=== PATIENT | female | born 1945 | race Caucasian/White ===

== ENCOUNTER 2023-09-15 01:56 | Observation (INO) | payer MEDICARE, BC ==
[2023-09-15] MEDS ORDERED: NALOXONE 0.4 MG/ML 1 ML VIAL IV PRN (02:10)
[2023-09-15] MEDS ORDERED: MORPHINE SULFATE 4 MG/ML SYRINGE IV PRN (02:10)
[2023-09-15] MEDS ORDERED: ACETAMINOPHEN TAB 325 MG TAB PO PRN (02:10)
--- NOTE | 2023-09-15 02:16 | ED ---
General Adult HPI - General Chief complaint: Arrhythmia/Palpitations Stated complaint: A-FIB Time Seen by Provider: 09/15/23 01:59 Source: patient, EMS, RN notes reviewed, old records reviewed Mode of arrival: EMS Limitations: no limitations - History of Present Illness Initial comments: 78-year-old female history of atrial fibrillation and coronary artery disease presents as transfer from outside hospital. Patient initially presented with chest pain and palpitations. She was noted to be in atrial fibrillation with RVR. Patient had received Cardizem and heparin infusion. She had an elevated troponin in the setting of chest discomfort and was transferred to this institution for cardiology consultation. Patient is in sinus rhythm and chest pain-free at the time my evaluation. Review of Systems ROS Statement: Those systems with pertinent positive or pertinent negative responses have been documented in the HPI. ROS Other: All systems not noted in ROS Statement are negative. Past Medical History Past Medical History: Atrial Fibrillation, COPD History of Any Multi-Drug Resistant Organisms: None Reported Past Surgical History: Appendectomy, Bowel Resection, Cholecystectomy, Heart C atheterization With Stent Past Psychological History: No Psychological Hx Reported Smoking Status: Former smoker Past Alcohol Use History: None Reported Past Drug Use History: None Reported General Exam Limitations: no limitations General appearance: alert, in no apparent distress Head exam: Present: atraumatic, normocephalic Eye exam: Present: normal appearance, PERRL ENT exam: Present: normal exam Neck exam: Present: normal inspection. Absent: tenderness, meningismus Respiratory exam: Present: normal lung sounds bilaterally, decreased breath sounds. Absent: respiratory distress, wheezes Cardiovascular Exam: Present: regular rate, normal rhythm GI/Abdominal exam: Present: soft. Absent: distended, tenderness, guarding Extremities exam: Present: pedal edema Neurological exam: Present: alert, oriented X3, CN II-XII intact. Absent: motor sensory deficit Psychiatric exam: Present: normal affect, normal mood Skin exam: Present: warm, dry, intact. Absent: cyanosis, diaphoretic Course Vital Signs 09/15/23 02:00 Temperature 98.3 F Pulse Rate 74 Respiratory 20 Rate Blood Pressure 138/68 O2 Sat by Pulse 97 Oximetry Medical Decision Making - Medical Decision Making Was pt. sent in by a medical professional or institution (, PA, MATCH MARKER, urgent care, hospital, or [facility]...) When possible be specific @ -Sent from [facility] Did you speak to anyone other than the patient for history (EMS, parent, family, police, friend...)? What history was obtained from this source @ -No Did you review nursing and triage notes (agree or disagree)? Why? @ -I reviewed and agree with nursing and triage notes Were old charts reviewed (outside hosp., previous admission, EMS record, old EKG, old radiological studies, urgent care reports/EKG's, [facility] records)? Report findings @ -No old charts were reviewed Differential Diagnosis (chest pain, altered mental status, abdominal pain women, abdominal pain men, vaginal bleeding, weakness, fever, dyspnea, syncope, headache, dizziness, GI bleed, back pain, seizure, CVA, palpatations, mental health, musculoskeletal)? @ Differential Palpitations Ventricular arrhythmias, atrial arrhythmias, myocardial infarction, anemia, thyrotoxicosis, electrolyte imbalance, hypokalemia, pulmonary embolism, pulmonary disease, drugs, alcohol, anxiety, stress.... This is not meant to be an all-inclusive list. EKG interpreted by me (3pts min.). @ Sinus rhythm with short MD interval, ventricular rate of 75, MD interval of 87, QRS duration 82, QTC [address] segment elevation, T-wave inversion in the lateral precordial leads. X-rays interpreted by me (1pt min.). @ -None done CT interpreted by me (1pt min.). @ -None done U/S interpreted by me (1pt. min.). @ -None done What testing was considered but not performed or refused? (CT, X-rays, U/S, labs)? Why? @ -None What meds were considered but not given or refused? Why? @ -None Did you discuss the management of the patient with other professionals (professionals i.e. , PA, MATCH MARKER, lab, RT, psych nurse, case management social worker, business objects report developer, teacher, dairy quality assurance officer, window caser)? Give summary @ -[Dr. Mayers Was smoking cessation discussed for >3mins.? @ -No Was critical care preformed (if so, how long)? @ -No Were there social determinants of health that impacted care today? How? (H omelessness, low income, unemployed, alcoholism, drug addiction, transportation, low edu. Level, literacy, decrease access to med. care, care home, rehab)? @ -No Was there de-escalation of care discussed even if they declined (Discuss DNR or withdrawal of care, Hospice)? DNR status @ -No What co-morbidities impacted this encounter? (DM, HTN, Smoking, COPD, CAD, Cancer, CVA, ARF, Chemo, Hep., AIDS, mental health diagnosis, sleep apnea, morbid obesity)? @ -Coronary artery disease, atrial fibrillation Was patient admitted / discharged? Hospital course, mention meds given and route, prescriptions, significant lab abnormalities, going to OR and other pertinent info. @ 78-year-old female presenting for him outside hospital with atrial fibrillation with RVR and elevated troponin. Patient is in sinus rhythm and chest pain-free at the time my evaluation. She will be monitored on telemetry, repeat laboratory testings and serial troponins will be ordered. She'll be admitted in observation status with cardiology on consultation. Undiagnosed new problem with uncertain prognosis? @ -No Drug Therapy requiring intensive monitoring for toxicity (Heparin, Nitro, Insulin, Cardizem)? @ -No Were any procedures done? @ -No Diagnosis/symptom? @ -[Atrial fibrillation with RVR, resolved, elevated troponin Acute, or Chronic, or Acute on Chronic? @ -[Acute Uncomplicated (without systemic symptoms) or Complicated (systemic symptoms)? @ -default Side effects of treatment? @ -No Exacerbation, Progression, or Severe Exacerbation? @ -No Poses a threat to life or bodily function? How? (Chest pain, [place], NH, pneumonia, PE, COPD, DKA, ARF, appy, cholecystitis, CVA, Diverticulitis, Homicidal, Suicidal, threat to staff... and all critical care pts) @ -[Yes, chest pain, arrhythmia Disposition Clinical Impression: Atrial fibrillation, Elevated troponin Disposition: ADMITTED IP TO THIS HOSP Condition: Stable Is patient prescribed a controlled substance at d/c from ED?: No Referrals: Nonstaff,Physician [Primary Care Provider] - 1-2 days Time of Disposition: 02:16
[2023-09-15 02:40] LABS: Basophils % (A) 0 %; Eosinophils # (A) 0.2 k/uL (0-0.7); Eosinophils % (A) 2 %; HCT 41.8 % (34.0-46.0); HGB 13.9 gm/dL (11.4-16.0); Lymphocytes # (A) 2.5 k/uL (1.0-4.8); Lymphocytes % (A) 32 %; MCH 32.5 pg (25.0-35.0); MCHC 33.2 g/dL (31.0-37.0); MCV 97.9 fL (80.0-100.0); Mean Platelet Volume 8.8; Monocytes # (A) 0.5 k/uL (0-1.0); Monocytes % (A) 6 %; Neutrophils # (A) 4.6 k/uL (1.3-7.7); Neutrophils % (A) 58 %; Platelet Count 167 k/uL (150-450); RBC 4.27 m/uL (3.80-5.40); RDW 13.3 % (11.5-15.5)
[2023-09-15 02:42] LABS: ALT 28 U/L (4-34); AST 24 U/L (14-36); African American GFR (CKD) >90 (>60 ml/min/1.73 sqM); Albumin 3.4 g/dL (3.5-5.0); Alkaline Phosphatase 65 U/L (38-126); Anion Gap 6 mmol/L; Blood Urea Nitrogen 24 mg/dL (7-17); Calcium 9.3 mg/dL (8.4-10.2); Carbon Dioxide 24 mmol/L (22-30); Chloride 108 mmol/L (98-107); Glucose 115 mg/dL (74-99); Magnesium 1.8 mg/dL (1.6-2.3); Non-African American GFR(CKD) 81 (>60 ml/min/1.73 sqM); Potassium 3.6 mmol/L (3.5-5.1); Sodium 138 mmol/L (137-145); Total Bilirubin 0.3 mg/dL (0.2-1.3); Total Protein 5.9 g/dL (6.3-8.2)
[2023-09-15 02:44] LABS: INR 0.9 (<1.2); Prothrombin Time 9.8 sec (10.0-12.5)
--- NOTE | 2023-09-15 03:44 | P.HPIM ---
History of Present Illness H&P Date: 09/15/23 Patient is a 78-year-old female with a PMH of paroxysmal A. fib, COPD with chronic hypoxic respiratory failure on nocturnal 2 L of the cannula oxygen at home, hypertension, CAD status post stenting, who was transferred from [facility] for chest pain. Patient reports she was in her usual state of health until around 9:45 PM earlier tonight when she suddenly developed epigastric chest discomfort, 7 out of 10 maximum intensity, radiating to the back, nonpleuritic, nonexertional, with no alleviating or exacerbating features. The pain lasted until she arrived at the transferring hospital and was given medications. She reports feeling at her baseline at the time of interview. Den ied experiencing associated shortness of breath, nausea, vomiting, diaphoresis, or dizziness. Denied fever, chills, cough, abdominal pain, diarrhea. Of note, the patient was recently admitted to [facility] for A. fib with RVR and was initiated on Eliquis as per the patient. The patient's workup from [facility] was reviewed with chest x- ray unremarkable. Laboratory evaluation revealed WBC count 8.12, and 114.8, platelets 191, sodium 140 potassium 3.8, chloride 105, CO2 28, BUN 23, creatinine 0.8. EKG revealed A. fib with RVR at 165 bpm. Troponin at our facility was 0.079. ED documentation reviewed and case discussed with ED provider. Review of systems: Pertinent positives and negatives as discussed in HPI, a complete review of systems was performed and all other systems are negative. Physical examination: Vital signs reviewed General: non toxic, no distress, appears at stated age, obese Derm: no unusual rashes/lesions, warm Head: atraumatic, normocephalic, symmetric Eyes: EOMI, no lid lag, anicteric sclera, pupils equal round reactive to light ENT: Nose and ears atraumatic Neck: No cervical lymphadenopathy, trachea midline, supple Mouth: no lip lesion, mucus membranes moist Cardiovascular: S1S2 reg, no murmur, positive dorsalis pedis pulse bilateral, no edema Lungs: CTA bilateral, no rhonchi, no rales, no accessory muscle use Abdominal: soft, nontender to palpation, no guarding Ext: muscle strength 5 out of 5 in all 4 extremities grossly, no gross muscle atrophy, no contractures, Neuro: CN II-XI grossly intact, no gross focal neuro deficits Psych: Alert, oriented, appropriate affect Assessment: NSTEMI Afib, RVR now resolved Chronic conditions: A. fib, COPD, CAD, hypertension Imaging: The patient's workup from [facility] was reviewed with chest x- ray unremarkable. EKG revealed A. fib with RVR at 165 bpm. Data Review: Laboratory evaluation revealed high sensitivity troponin 73, WBC count 8.12, and 114.8, platelets 191, sodium 140 potassium 3.8, chloride 105, CO2 28, BUN 23, creatinine 0.8. Plan: Patient currently on Eliquis. Reports dose is 5 mg po bid and doesn't recall when she last took it Trend troponin Cardiac monitoring Cardiology consult Continue with aspirin, statin Echocardiogram Resume home medications once reconciled DVT prophylaxis: Eliquis The patient is admitted with an anticipated less than 2 midnight stay for evaluation of chest pain CODE STATUS: Full Code Discussed with: Patient Anticipated discharge place: Home Past Medical History Past Medical History: Atrial Fibrillation, COPD History of Any Multi-Drug Resistant Organisms: None Reported Past Surgical History: Appendectomy, Bowel Resection, Cholecystectomy, Heart Catheterization With Stent Past Psychological History: No Psychological Hx Reported Smoking Status: Former smoker Past Alcohol Use History: None Reported Past Drug Use History: None Reported Medications and Allergies Allergies Allergy/AdvReac Type Severity Reaction Status Date / Time aclidinium Allergy Unknown Verified 09/15/23 02:16 [From [facility]] lisinopril Allergy Unknown Verified 09/15/23 02:16 morphine Allergy Unknown Verified 09/15/23 02:16 Penicillins Allergy Unknown Verified 09/15/23 02:16 Maxlvva-DVP-KaJ Reductase Allergy Unknown Verified 09/15/23 02:16 Inhibitor aspirin AdvReac Nausea & Verified 09/15/23 02:16 Vomiting Physical Exam Vitals: Vital Signs Temp Pulse Resp BP Pulse Ox 09/15/23 02:00 98.3 F 74 20 138/68 97 Intake and Output 09/14/23 09/14/23 09/15/23 14:59 22:59 06:59 Other: Weight 79.832 kg Results CBC & Chem 7: 09/15/23 02:07 09/15/23 02:07 Labs: Abnormal Lab Results - Last 24 Hours (Table) 10/09/15/23 09/15/23 Range/Units 02:07 02:07 02:07 PT 9.8 L (10.0-12.5) sec Chloride 108 H (98-107) mmol/L BUN 24 H (7-17) mg/dL Glucose 115 H (74-99) mg/dL Troponin I 0.079 H* (0.000-0.034) ng/mL Total Protein 5.9 L (6.3-8.2) g/dL Albumin 3.4 L (3.5-5.0) g/dL
[2023-09-15] MEDS: ASPIRIN 81 MG PO SCH (08:28)
[2023-09-15] MEDS ORDERED: ALPRAZolam 0.25 MG TAB PO PRN ×2 (08:50→10:11)
[2023-09-15] MEDS ORDERED: DILTIAZEM CD 120 MG CAP.ER.24H PO SCH (09:00)
[2023-09-15] MEDS: buPROPion 75 MG TAB PO SCH (09:25)
[2023-09-15] MEDS: ISOSORBIDE MONONITRATE ER 30 MG TAB.ER.24H PO SCH (09:25)
[2023-09-15] MEDS ORDERED: NITROGLYCERIN SL TABS 0.4 MG TAB SUBLINGUAL PRN (10:11)
[2023-09-15] MEDS ORDERED: ATORVASTATIN 80 MG TAB PO STA (10:11)
[2023-09-15] MEDS ORDERED: ALPRAZolam 0.5 MG TAB PO PRN (10:11)
[2023-09-15] MEDS ORDERED: ASPIRIN 325 MG TAB PO STA (10:11)
[2023-09-15] MEDS ORDERED: DILTIAZEM CD 120 MG CAP.ER.24H PO STA (10:13)
[2023-09-15] MEDS: ALBUTEROL NEBULIZED 2.5 MG/3 ML INHALATION PRN ×2 (11:26→21:06)
[2023-09-15] MEDS ORDERED: SODIUM CHLORIDE 0.9% 1,000 ML IV SCH (11:30)
--- NOTE | 2023-09-15 12:11 | P.CRDCN ---
History of Present Illness Consult date: 09/15/23 Consult reason: atrial fibrillation (With RVR, elevated troponin) History of present illness: History of present illness: This is a 78 year old female patient follows with Dr. Garcia cardiology at [facility] with past medical history of coronary artery disease with stent of the circumflex in 2009, atrial fibrillation, COPD, bowel cancer and bladder cancer, AAA, home O2 dependence at 2 L nasal cannula as needed, remote history of tobacco use and dependence. Patient gives history that she was admitted to [facility] on Monday and found to have atrial fibrillation was discharged home on Monday on . She had echocardiogram done at that time but no stress test. Patient states that last night she had pain or pressur e or burning type sensation until she arrived to the hospital. She states the pain comes and goes and she breaks into a sweat with shortness of breath. No lightheadedness and no palpitations. Last night she noticed that she also had lower extremity edema which is new. She states yesterday during the day she was feeling fine and had a follow-up appointment from her recent hospitalization. She does complain of chronic shortness of breath with exertion. She denies any blood in her stool. No history of CVA. Patient denies having any recent catheterization or stress test. Patient is seen today in the emergency center waiting for a bed on the cardiac stepdown unit. Patient is currently in atrial fibrillation rate controlled. EKG sinus rhythm with no acute ST changes. CBC within normal limits. INR 0.9. Sodium 138, potassium 3.7, chloride 108, CO2 24, BUN 24 creatinine 0.73. Blood sugar 115. Magnesium 1.8. Troponin 0.079, 0.097, 0.101. TSH 4.13. Albumin 3.4. Home cardiac medications: Aspirin 81 mg daily, Cardizem 120 mg daily, Jardiance 10 mg daily, Imdur 30 mg daily, Nitrostat as needed, eliquis not on her medication list Review Of Systems: At the time of my evaluation: Constitutional: No fever, no chills. No weakness, fatigue or lethargy. EENT: No headache. No dizziness. Lungs: + shortness of breath, cough, no sputum production. No wheezing. Reports dyspnea on exertion Cardiovascular: No chest pain, no lower extremity edema. No palpitations. No paroxysmal nocturnal dyspnea. No orthopnea. No lightheadedness or dizziness. No syncopal episodes. Abdominal: No abdominal pain. No nausea, vomiting. No diarrhea. No constipation. No bloody or tarry stools. Genitourinary: No dysuria.. No urinary retention. Musculoskeletal: No myalgias. No muscle weakness, no frequent falls. No back pain. No neck pain. Integumentary: No wounds. No rash. No unusual bruising. Neurologic: No aphasia. No facial droop. No change in mentation. No head injury. No headache. Physical examination: Gen: This is a 78-year-old female. She is resting on the ear structure and appears to be in no acute distress VS: reviewed HEENT: Head is atraumatic, normocephalic. Pupils equal, round. Sclerae is anicteric. NECK: Supple. No JVD. . LUNGS: Clear to auscultation. No wheezes or rhonchi. No intercostal retractions. HEART: Irregular rate and rhythm. ABDOMEN: Soft No tenderness. EXTREMITIES: No pedal edema. No calf tenderness. NEUROLOGICAL: Patient is awake, alert and oriented x3. Assessment: Non-ST elevated myocardial infarction Dyspnea on exertion concerning for coronary artery disease Paroxysmal atrial fibrillation, rate controlled History of coronary artery disease with previous stent of circumflex in 2009 COPD History of bowel cancer and bladder cancer History of AAA Chronic hypoxic respiratory failure on home O2 as needed Plan: Continue heparin drip Increase Cardizem oral to 240 mg daily Make patient nothing by mouth Schedule patient for cardiac catheterization today with Dr. Chacon Obtain 2-D echocardiogram and Doppler study to assess cardiac structure and function Further recommendations to follow based upon clinical course Thank you kindly for this consultation. Nurse practitioner note has been reviewed, I agree with documented findings and plan of care. Patient was seen and examined. Past Medical History Past Medical History: Atrial Fibrillation, COPD History of Any Multi-Drug Resistant Organisms: None Reported Past Surgical History: Appendectomy, Bowel Resection, Cholecystectomy, Heart Catheterization With Stent Past Psychological History: No Psychological Hx Reported Smoking Status: Former smoker Past Alcohol Use History: None Reported Past Drug Use History: None Reported Medications and Allergies Home Medications Medication Instructions Recorded Confirmed Type ALPRAZolam [Xanax] 0.125 mg PO BID PRN 09/15/23 09/15/23 History Albuterol Nebulized [Ventolin 2.5 mg INHALATION RT-Q6H PRN 09/15/23 09/15/23 History Nebulized] Albuterol Sulfate [Ventolin HFA] 1 - 2 puff INHALATION RT-Q6H PRN 09/15/23 09/15/23 History Alendronate Sodium [Fosamax] 70 mg PO Q7DAYS 09/15/23 09/15/23 History Aspirin EC [Ecotrin Low Dose] 81 mg PO DAILY 09/15/23 09/15/23 History Cholecalciferol [Vitamin D3 (25 50 mcg PO DAILY 09/15/23 09/15/23 History Mcg = 1000 Iu)] Empagliflozin [Jardiance] 10 mg PO DAILY 09/15/23 09/15/23 History Fluticasone Nasal [place] [Flonase 1 spray EA NOSTRIL BID PRN 09/15/23 09/15/23 History Nasal [place]] Isosorbide Mononitrate ER [Imdur] 30 mg PO DAILY 09/15/23 09/15/23 History L.acidoph,Paracasei, B.lactis 1 cap PO DAILY 09/15/23 09/15/23 History [Probiotic] Montelukast [Singulair] 10 mg PO HS 09/15/23 09/15/23 History Multivitamin/Iron/Folic Acid 1 tab PO DAILY 09/15/23 09/15/23 History [Centrum Complete Multivit Tab] Nitroglycerin Sl Tabs [Nitrostat] 0.4 mg SUBLINGUAL Q5M PRN 09/15/23 09/15/23 H istory Tiotropium Br/Olodaterol HCl 2 spray INHALATION RT-DAILY 09/15/23 09/15/23 History [Stiolto Respimat Inhal [place]] buPROPion [Wellbutrin] 75 mg PO DAILY 09/15/23 09/15/23 History dilTIAZem HCL [dilTIAZem HCL 24Hr 120 mg PO DAILY 09/15/23 09/15/23 History ER (Xr)] diphenhydrAMINE HCL [Benadryl] 25 mg PO BID PRN 09/15/23 09/15/23 History Allergies Allergy/AdvReac Type Severity Reaction Status Date / Time acetaminophen [From Tylenol] Allergy Unknown Verified 09/15/23 06:55 aclidinium Allergy Unknown Verified 09/15/23 06:55 [From [facility]] lisinopril Allergy Unknown Verified 09/15/23 06:55 morphine Allergy Unknown Verified 09/15/23 06:55 Penicillins Allergy Unknown Verified 09/15/23 06:55 Buajkxk-MLB-FkB Reductase Allergy Unknown Verified 09/15/23 06:55 Inhibitor aspirin AdvReac Nausea & Verified 09/15/23 06:55 Vomiting Physical Exam Vitals: Vital Signs Temp Pulse Resp BP Pulse Ox 09/15/23 08:20 97 09/15/23 08:00 73 18 130/76 96 09/15/23 02:00 98.3 F 74 20 138/68 97 Intake and Output 09/14/23 09/15/23 09/15/23 22:59 06:59 14:59 Other: Weight 79.832 kg Results 09/15/23 02:07 09/15/23 02:07 Cardiac Enzymes 09/15/23 09/15/23 09/15/23 Range/Units 02:07 02:07 04:03 AST 24 (14-36) U/L Troponin I 0.079 H* 0.097 H* (0.000-0.034) ng/mL 09/15/23 Range/Units 07:32 AST (14-36) U/L Troponin I 0.101 H* (0.000-0.034) ng/mL Coagulation 09/15/23 Range/Units 02:07 PT 9.8 L (10.0-12.5) sec APTT 28.0 (22.0-30.0) sec CBC 09/15/23 Range/Units 02:07 WBC 8.0 (3.8-10.6) k/uL RBC 4.27 (3.80-5.40) m/uL Hgb 13.9 (11.4-16.0) gm/dL Hct 41.8 (34.0-46.0) % Plt Count 167 (150-450) k/uL Comprehensive Metabolic Panel 09/15/23 Range/Units 02:07 Sodium 138 (137-145) mmol/L Potassium 3.6 (3.5-5.1) mmol/L Chloride 108 H (98-107) mmol/L Carbon Dioxide 24 (22-30) mmol/L BUN 24 H (7-17) mg/dL Creatinine 0.73 (0.52-1.04) mg/dL Glucose 115 H (74-99) mg/dL Calcium 9.3 (8.4-10.2) mg/dL AST 24 (14-36) U/L ALT 28 (4-34) U/L Alkaline Phosphatase 65 (38-126) U/L Total Protein 5.9 L (6.3-8.2) g/dL Albumin 3.4 L (3.5-5.0) g/dL Current Medications Generic Name Dose Route Start Last Admin Trade Name Freq PRN Reason Stop Dose Admin Acetaminophen 650 mg 09/15/23 02:10 Acetaminophen Tab 325 Mg Tab PO Q6HR PRN Mild Pain or Fever > 100.5 Albuterol Sulfate 2.5 mg 09/15/23 08:50 Albuterol Nebulized 2.5 Mg/3 Ml INHALATION RT-Q6H PRN Shortness Of Breath Alprazolam 0.125 mg 09/15/23 08:50 Alprazolam 0.25 Mg Tab PO BID PRN Anxiety Aspirin 81 mg 09/15/23 09:00 09/15/23 08:28 Aspirin 81 Mg PO 81 mg DAILY CL Administration Bupropion HCl 75 mg 09/15/23 09:00 Bupropion 75 Mg Tab PO DAILY CL Diltiazem HCl 120 mg 09/15/23 09:00 Diltiazem Cd 120 Mg Cap.Er.24h PO DAILY CL Isosorbide Mononitrate 30 mg 09/15/23 09:00 Isosorbide Mononitrate Er 30 Mg Tab.Er.24h PO DAILY [facility] Montelukast Sodium 10 mg 09/15/23 21:00 Montelukast 10 Mg Tab PO HS [facility] Morphine Sulfate 4 mg 09/15/23 02:10 Morphine Sulfate 4 Mg/Ml Syringe IV Q4HR PRN Severe Pain (Scale 7 to 10) Naloxone HCl 0.2 mg 09/15/23 02:10 Naloxone 0.4 Mg/Ml 1 Ml Vial IV Q2M PRN Opioid Reversal Intake and Output 09/14/23 09/15/23 09/15/23 22:59 06:59 14:59 Other: Weight 79.832 kg 09/15/23 02:07 09/15/23 02:07
[2023-09-15] MEDS ORDERED: IV FLUID CONTINUATION 1,000 ML IV ONE (13:26)
[2023-09-15] MEDS ORDERED: VERAPAMIL 2.5 MG/ML 2 ML AMP ONE (13:40)
[2023-09-15] MEDS ORDERED: fentaNYL (PF) 50 MCG/ML 2 ML AMP ONE (13:44)
[2023-09-15] MEDS ORDERED: fentaNYL (PF) 50 MCG/ML 2 ML AMP IVP ONE (13:50)
[2023-09-15] MEDS ORDERED: MIDAZOLAM 2 MG/2 ML VIAL IVP ONE (13:50)
[2023-09-15] MEDS ORDERED: LIDOCAINE 2% (PF) 20 MG/ML 5 ML VIAL SQ ONE (13:51)
[2023-09-15] MEDS ORDERED: VERAPAMIL SYRINGE (5 MG/10 ML) INTRAARTER ONE (13:53)
[2023-09-15] MEDS ORDERED: HEPARIN SODIUM 1,000 UN/ML (10ML VL) ONE (13:56)
[2023-09-15] MEDS: HEPARIN SODIUM 1,000 UN/ML (10ML VL) IV ONE ×2 (13:58→14:30)
[2023-09-15] MEDS ORDERED: CLOPIDOGREL 75 MG TAB ONE (14:08)
[2023-09-15] MEDS ORDERED: CLOPIDOGREL 75 MG TAB PO ONE (14:11)
[2023-09-15] MEDS ORDERED: IOPAMIDOL-370 100ML BTL INJ ONE ×2 (14:20→14:39)
[2023-09-15] MEDS: NITROGLYCERIN 1000MCG/10ML SYRINGE INTRACORON ONE ×3 (14:21→14:30)
[2023-09-15] MEDS ORDERED: FLUTICASONE 50MCG/SPRAY NASAL 16GM EA NOSTRIL PRN (14:45)
[2023-09-15] MEDS ORDERED: ZOLPIDEM 5 MG TAB PO PRN (14:47)
[2023-09-15] MEDS ORDERED: MAG HYDROX/AL HYDROX/SIMETH 30 ML CUP PO PRN (14:47)
[2023-09-15] MEDS ORDERED: RX INFO: IV CONTRAST WAS GIVEN 1 EACH MISC MISCELLANE PRN (14:47)
[2023-09-15] MEDS ORDERED: ATROPINE SULFATE 0.1 MG/ML 10ML SYRINGE IV PRN (14:47)
--- NOTE | 2023-09-15 16:30 | P.PRCINT ---
Percutaneous Coronary Int. - Percutaneous Coronary Intervention Percutaneous Coronary Intervention: PROCEDURES PERFORMED: Left heart catheterization, bilateral coronary angiography, ultrasound guided arterial access, PCI distal circumflex with a 2.5 x 23mm and 2.25 x 8mm Xience ELOY INDICATION: Non-STEMI CONSENT:I have discussed the risks, benefits and alternative therapies for the above-mentioned procedure and for both sedation/analgesia as well as necessary blood product administration, if indicated, as they pertain to this patient. The patient has indicated understanding and acceptance of the risks and procedures discussed. PROCEDURE: After the risks, benefits and alternatives of the above mentioned procedure explained in detail with the patient, informed consent was obtained. Patient was taken to the catheterization lab and prepped and draped in usual fashion. Ultrasound guidance was used to assess for arterial access. 1% lidocaine was used to anesthetize the right ulnar artery. A 6-Ivorian sheath was placed in the right ulnarartery using modified Seldinger technique and ultrasound guidance. Left coronary angiography was performed with a 5-Ivorian JL 3.5 catheter and right coronary angiography was performed with a 5-Ivorian AR2 catheter in various views. A 5-Ivorian AR2 catheter was inserted into the left ventricle and pressure measurements were obtained. The decision was made to perform PCI of the circumflex. A 6-Ivorian CLS 3.5 guide was used to engage the left main. A 0.014 BMW wire was advanced in the distal circumflex. Heparin was given. Predilation was performed with a 2.0 x 12 mm and then 2.25 x 15 mm noncompliant balloon. Next a 2.5 x 23 mm Xience ELOY was placed in the distal circumflex. An additional 2.25 by 8mm Xience ELOY was placed at the distal edge of the stent given still some area of stenosis. The wire was pulled and final angiograms were performed. Preintervention there was 90% stenosis and BIRD-3 flow and postintervention there was less than 10% stenosis and BIRD-3 flow. The right ulnar sheath was removed and a TR band was placed with hemostasis ac hieved. The patient tolerated the procedure well. Patient was transported back to the post catheterization holding area in stable condition. Conscious Sedation: Patient was monitored under the direct supervision of myself for conscious sedation using Versed and fentanyl for a total duration of 50 minutes HEMODYNAMICS: Ao: 144/73 LV: 139/7, LVEDP 23 SELECTIVE CORONARY ARTERIOGRAPHY: LEFT MAIN: The left main is a large caliber vessel which bifurcates into the LAD and circumflex. There is no significant stenosis. LEFT ANTERIOR DESCENDING CORONARY ARTERY: LAD is a large caliber vessel which wraps around to the apex. There is diffuse mild 30-40% mid and distal LAD stenosis. LEFT CIRCUMFLEX CORONARY ARTERY: Left circumflex is a moderate caliber vessel with a patent proximal circumflex stent and after an OM2 branch there is a 90% distal circumflex stenosis. RIGHT CORONARY ARTERY: The right coronary artery is a small to moderate caliber vessel which gives off a PDA and PLV branch and is the dominant vessel. There is diffuse 30-50% RCA stenosis. FINAL IMPRESSION: 1. CAD as described above including 30-50% RCA stenosis, 30-40% middle and distal LAD stenosis and 90% distal circumflex stenosis 2. Elevated left sided filling pressures 3. S/p PCI distal circumflex with a 2.5 x 23mm and 2.25 x 8mm Xience ELOY PLAN: 1. Aggressive risk factor modification per most recent ACC/AHA guidelines. 2. Continue Plavix and Eliquis for 12 months.
[2023-09-15] MEDS ORDERED: MONTELUKAST 10 MG TAB PO SCH (21:00)
[2023-09-16 02:35] LABS: Glucose,Whole Blood 98 mg/dL (70-110)
[2023-09-16 06:14] LABS: Glucose,Whole Blood 88 mg/dL (70-110)
[2023-09-16] MEDS ORDERED: HEPARIN SODIUM,PORCINE (1 ML) 2,500 UNIT in SODIUM CHLORIDE 0.9% 250 ML IRRIGATION PRN (07:00)
[2023-09-16] MEDS ORDERED: HEPARIN SODIUM,PORCINE 10,000 UNIT in SODIUM CHLORIDE 0.9% 1,000 ML IRRIGATION PRN (07:00)
[2023-09-16] MEDS: buPROPion 75 MG TAB PO SCH (08:31)
[2023-09-16] MEDS: ISOSORBIDE MONONITRATE ER 30 MG TAB.ER.24H PO SCH (08:31)
[2023-09-16] MEDS: ASPIRIN 81 MG PO SCH (08:31)
[2023-09-16] MEDS ORDERED: CLOPIDOGREL 75 MG TAB PO SCH (09:00)
[2023-09-16] MEDS ORDERED: LACTOBACILLUS ACIDOPHILUS/PECT 1 EACH CAPSULE PO SCH (09:00)
[2023-09-16] MEDS ORDERED: CHOLECALCIFEROL 25 MCG (1000 IU) TABLET PO SCH (09:00)
[2023-09-16] MEDS ORDERED: APIXABAN 2.5 MG TABLET PO SCH (09:00)
[2023-09-16] MEDS ORDERED: DAPAGLIFLOZIN PROPANEDIOL 5 MG TABLET PO SCH (09:00)
[2023-09-16] MEDS ORDERED: DILTIAZEM CD 240 MG CAP.ER.24H PO SCH (09:00)
[2023-09-16] MEDS ORDERED: NON FORMULARY DRUG (Aspirin Ec 81 MG Tablet) PO SCH (09:00)
[2023-09-16 09:26] LABS: Basophils % (A) 0 %; Eosinophils # (A) 0.3 k/uL (0-0.7); Eosinophils % (A) 4 %; HCT 44.2 % (34.0-46.0); HGB 14.2 gm/dL (11.4-16.0); Lymphocytes # (A) 1.5 k/uL (1.0-4.8); Lymphocytes % (A) 20 %; MCH 31.8 pg (25.0-35.0); MCHC 32.2 g/dL (31.0-37.0); Mean Platelet Volume 8.2; Monocytes # (A) 0.4 k/uL (0-1.0); Monocytes % (A) 6 %; Neutrophils # (A) 5.2 k/uL (1.3-7.7); Neutrophils % (A) 69 %; Platelet Count 167 k/uL (150-450); RBC 4.46 m/uL (3.80-5.40); RDW 13.4 % (11.5-15.5); WBC 7.5 k/uL (3.8-10.6)
[2023-09-16 09:51] LABS: African American GFR (CKD) >90 (>60 ml/min/1.73 sqM); Anion Gap 10 mmol/L; Blood Urea Nitrogen 15 mg/dL (7-17); Calcium 8.9 mg/dL (8.4-10.2); Carbon Dioxide 23 mmol/L (22-30); Chloride 107 mmol/L (98-107); Glucose 89 mg/dL (74-99); Non-African American GFR(CKD) 85 (>60 ml/min/1.73 sqM); Sodium 140 mmol/L (137-145)
--- NOTE | 2023-09-16 10:57 | P.PN ---
Subjective Progress Note Date: 09/16/23 History of present illness: This is a 78 year old female patient follows with Dr. Garcia cardiology at [facility] with past medical history of coronary artery disease with stent of the circumflex in 2009, atrial fibrillation, COPD, bowel cancer and bladder cancer, AAA, home O2 dependence at 2 L nasal cannula as needed, remote history of tobacco use and dependence. Patient gives history that she was admitted to [facility] on Monday and found to have atrial fibrillation was discharged home on Monday on . She had echocardiogram done at that time but no stress test. Patient states that last night she had pain or pressure or burning type sensation until she arrived to the hospital. She states the pain comes and goes and she breaks into a sweat with shortness of breath. No lightheadedness and no palpitations. Last night she noticed that she also had lower extremity edema which is new. She states yesterday during the day she was feeling fine and had a follow-up appointment from her recent hospitalization. She does complain of chronic shortness of breath with exertion. She denies any blood in her stool. No history of CVA. Patient denies having any recent cathet erization or stress test. Patient is seen today in the emergency center waiting for a bed on the cardiac stepdown unit. Patient is currently in atrial fibrillation rate controlled. EKG sinus rhythm with no acute ST changes. CBC within normal limits. INR 0.9. Sodium 138, potassium 3.7, chloride 108, CO2 24, BUN 24 creatinine 0.73. Blood sugar 115. Magnesium 1.8. Troponin 0.079, 0.097, 0.101. TSH 4.13. Albumin 3.4. Home cardiac medications: Aspirin 81 mg daily, Cardizem 120 mg daily, Jardiance 10 mg daily, Imdur 30 mg daily, Nitrostat as needed, eliquis not on her medication list 09/16 Yessterday, patient underwent LHC with Dr. Chacon which revealed CAD including 30-50% RCA stenosis, 30-40% middle and distal LAD stenosis, 90% distal circumflex stenosis. Elevated left-sided filling pressures. Patient underwent PCI of the distal circumflex with plan to continue Plavix and eliquis for 12 months. Reviewed results of cardiac cath with the patient and all questions were answered. Patient denies having any chest pain but still has some diiculty breathing which is about the same as she has at home. She is concerned that she needs an oxygen tank to go home with and nursing has been updated regarding this. Physical examination: Gen: This is a 78-year-old female. She is resting on the edge of her bed and appears to be in no acute distress VS: reviewed HEENT: Head is atraumatic, normocephalic. Pupils equal, round. Sclerae is anicteric. NECK: Supple. No JVD. . LUNGS: Clear to auscultation. No wheezes or rhonchi. No intercostal retractions. HEART: Irregular rate and rhythm. ABDOMEN: Soft No tenderness. EXTREMITIES: No pedal edema. No calf tenderness. NEUROLOGICAL: Patient is awake, alert and oriented x3. Assessment: Non-ST elevated myocardial infarction Dyspnea on exertion concerning for coronary artery disease Paroxysmal atrial fibrillation, rate controlled History of coronary artery disease with previous stent of circumflex in 2009 COPD History of bowel cancer and bladder cancer History of AAA Chronic hypoxic respiratory failure on home O2 as needed Plan: Continue Cardizem oral 240 mg daily Continue other cardiac medications Add Lasix 40 mg oral daily Patient is cleared for discharge from cardiology and may follow-up with either Dr. Chacon or with systems specialist in her area. Nurse practitioner note has been reviewed, I agree with documented findings and plan of care. Patient was seen and examined. Objective - Vital Signs Vital signs: Vital Signs Temp 98.0 F 09/16/23 08:20 Pulse 80 09/16/23 08:20 Resp 18 09/16/23 08:20 BP 131/81 09/16/23 08:20 Pulse Ox 93 L 09/16/23 08:20 FiO2 Intake & Output 09/15/23 09/16/23 09/16/23 18:59 06:59 18:59 Intake Total 330 Balance 330 Weight 79.832 kg Intake: IV 150 Oral 180 Other: Voiding Method Toilet # Voids 1 2 - Labs CBC & Chem 7: 09/16/23 08:23 09/16/23 08:23
[2023-09-16 10:59] VITALS: TEMP 98
[2023-09-16] MEDS ORDERED: FUROSEMIDE 40 MG TAB PO SCH (11:00)
--- NOTE | 2023-09-16 11:42 | P.DS ---
Providers Date of admission: 09/15/23 02:10 Expected date of discharge: 09/16/23 Attending physician: Ramona Mayers MD Consults: 09/15/23 02:10 Consult Physician Routine Consulting Provider: Lashay Capellan Consult Reason/Comments: Elevated troponin, a chest tube placed with RVR Do you want consulting provider notified?: Yes 09/15/23 14:47 Consult Physician Routine Consulting Provider: [facility] Consult Reason/Comments: Post Interventional Patient Do you want consulting provider notified?: Already Contacted Primary care physician: Geovani Rolle MD Hospital Course: Patient is a 78-year-old female with a PMH of paroxysmal A. fib, COPD with chronic hypoxic respiratory failure on nocturnal 2 L of the cannula oxygen at home, hypertension, CAD status post stenting, who was transferred from [facility] for chest pain. Patient reports she was in her usual state of health until around 9:45 PM earlier tonight when she suddenly developed epigastr ic chest discomfort, 7 out of 10 maximum intensity, radiating to the back, nonpleuritic, nonexertional, with no alleviating or exacerbating features. The pain lasted until she arrived at the transferring hospital and was given medications. She reports feeling at her baseline at the time of interview. Denied experiencing associated shortness of breath, nausea, vomiting, diaphoresis, or dizziness. Denied fever, chills, cough, abdominal pain, diarrhea. Of note, the patient was recently admitted to [facility] for A. fib with RVR and was initiated on Eliquis as per the patient. The patient's workup from [facility] was reviewed with chest x- ray unremarkable. Laboratory evaluation revealed WBC count 8.12, and 114.8, platelets 191, sodium 140 potassium 3.8, chloride 105, CO2 28, BUN 23, creatinine 0.8. EKG revealed A. fib with RVR at 165 bpm. Troponin at our facility was 0.079. Troponin uptrended to 0.097 and 0.101. She was started on a heparin drip and cardiology was consulted. Cardiology recommended cardiac cath. Cath showed 30- 50% RCA, 30-40% middle and distal LAD and 90% left circumflex. She underwent PCI to distal circumflex. 09/16 Patient was seen and examined. She reports no chest pain. Feeling well. Cardiology has cleared the patient for discharge. Scripts sent to pharmacy for Eliquis, new Cardizem dose, Lasix and Plavix. Advised to follow up with Cardiology within 1 week and PCP within 1-2 days of discharge. Pertinent studies include EKG. Pertinent procedures include cardiac cath. Vital signs reviewed General: non toxic, no distress, appears at stated age, obese Head: atraumatic, normocephalic, symmetric Eyes: EOMI, no lid lag, anicteric sclera ENT: Nose and ears atraumatic Neck: No cervical lymphadenopathy, trachea midline, supple Cardiovascular: S1S2 reg, no murmur, no edema Lungs: CTA bilateral, no rhonchi, no rales, no accessory muscle use Ext: muscle strength 5 out of 5 in all 4 extremities grossly, no gross muscle atrophy, no contractures, Neuro: no gross focal neuro deficits Psych: Alert, oriented, appropriate affect Discharge Diagnosis: NSTEMI Afib, RVR now resolved Chronic conditions: A. fib, COPD, CAD, hypertension This complex discharge took 35 minutes to complete. Patient Condition at Discharge: Stable Plan - Discharge Summary New Discharge Prescriptions: New Diltiazem Cd [Cardizem CD] 240 mg PO DAILY #30 cap Apixaban [Eliquis] 2.5 mg PO BID #60 tab Furosemide [Lasix] 40 mg PO DAILY #30 tab Clopidogrel [Plavix] 75 mg PO DAILY #30 tab Continue Nitroglycerin Sl Tabs [Nitrostat] 0.4 mg SUBLINGUAL Q5M PRN PRN Reason: Chest Pain Isosorbide Mononitrate ER [Imdur] 30 mg PO DAILY buPROPion [Wellbutrin] 75 mg PO DAILY Cholecalciferol [Vitamin D3 (25 Mcg = 1000 Iu)] 50 mcg PO DAILY ALPRAZolam [Xanax] 0.125 mg PO BID PRN PRN Reason: Anxiety Multivitamin/Iron/Folic Acid [Centrum Complete Multivit Tab] 1 tab PO DAILY Montelukast [Singulair] 10 mg PO HS L.acidoph,Paracasei, B.lactis [Probiotic] 1 cap PO DAILY diphenhydrAMINE HCL [Benadryl] 25 mg PO BID PRN PRN Reason: Allergy Symptoms Fluticasone Nasal [place] [Flonase Nasal [place]] 1 spray EA NOSTRIL BID PRN PRN Reason: Allergy Symptoms Aspirin EC [Ecotrin Low Dose] 81 mg PO DAILY Empagliflozin [Jardiance] 10 mg PO DAILY Alendronate Sodium [Fosamax] 70 mg PO Q7DAYS Albuterol Sulfate [Ventolin HFA] 1 - 2 puff INHALATION RT-Q6H PRN PRN Reason: Shortness Of Breath Albuterol Nebulized [Ventolin Nebulized] 2.5 mg INHALATION RT-Q6H PRN PRN Reason: Shortness Of Breath Tiotropium Br/Olodaterol HCl [Stiolto Respimat Inhal [place]] 2 spray INHALATION RT-DAILY Discontinued dilTIAZem HCL [dilTIAZem HCL 24Hr ER (Xr)] 120 mg PO DAILY Discharge Medication List ALPRAZolam [Xanax] 0.125 mg PO BID PRN 09/15/23 [History] Albuterol Nebulized [Ventolin Nebulized] 2.5 mg INHALATION RT-Q6H PRN 09/15/23 [History] Albuterol Sulfate [Ventolin HFA] 1 - 2 puff INHALATION RT-Q6H PRN 09/15/23 [History] Alendronate Sodium [Fosamax] 70 mg PO Q7DAYS 09/15/23 [History] Aspirin EC [Ecotrin Low Dose] 81 mg PO DAILY 09/15/23 [History] Cholecalciferol [Vitamin D3 (25 Mcg = 1000 Iu)] 50 mcg PO DAILY 09/15/23 [History] Empagliflozin [Jardiance] 10 mg PO DAILY 09/15/23 [History] Fluticasone Nasal [place] [Flonase Nasal [place]] 1 spray EA NOSTRIL BID PRN 09/15/23 [History] Isosorbide Mononitrate ER [Imdur] 30 mg PO DAILY 09/15/23 [History] L.acidoph,Paracasei, B.lactis [Probiotic] 1 cap PO DAILY 09/15/23 [History] Montelukast [Singulair] 10 mg PO HS 09/15/23 [History] Multivitamin/Iron/Folic Acid [Centrum Complete Multivit Tab] 1 tab PO DAILY 09/15/23 [History] Nitroglycerin Sl Tabs [Nitrostat] 0.4 mg SUBLINGUAL Q5M PRN 09/15/23 [History] Tiotropium Br/Olodaterol HCl [Stiolto Respimat Inhal [place]] 2 spray INHALATION RT-DAILY 09/15/23 [History] buPROPion [Wellbutrin] 75 mg PO DAILY 09/15/23 [History] diphenhydrAMINE HCL [Benadryl] 25 mg PO BID PRN 09/15/23 [History] Apixaban [Eliquis] 2.5 mg PO BID #60 tab 09/16/23 [Rx] Clopidogrel [Plavix] 75 mg PO DAILY #30 tab 09/16/23 [Rx] Diltiazem Cd [Cardizem CD] 240 mg PO DAILY #30 cap 09/16/23 [Rx] Furosemide [Lasix] 40 mg PO DAILY #30 tab 09/16/23 [Rx] Follow up Appointment(s)/Referral(s): Aron Chacon DO [STAFF PHYSICIAN] - 1 Week Nonstaff,Physician [REFERRING] - 1-2 days Discharge Disposition: HOME SELF-CARE
[2023-09-16 12:02] LABS: Glucose,Whole Blood 83 mg/dL (70-110)
[2023-09-16 12:15] VITALS: BP 154/67; PULSE 60; RESP 16
[2023-09-16 14:08] VITALS: BMI 33.2
[2023-09-22] MEDS ORDERED: NON FORMULARY DRUG (Alendronate Sodium [Fosamax] 70 MG Tablet) PO SCH (09:00)
== END 2023-09-16 14:23 | disposition home or self-care (01) ==
LOC: EC 01:56 → 3SCARD 02:10
PROVIDERS: ADMIT Internal Medicine; ATTEND Internal Medicine
DX: I21.4 Non-ST elevation (NSTEMI) myocardial infarction (principal); I10 Essential (primary) hypertension; J96.11 Chronic respiratory failure with hypoxia; I48.0 Paroxysmal atrial fibrillation; I25.10 Atherosclerotic heart disease of native coronary artery without angina pectoris; J44.9 Chronic obstructive pulmonary disease, unspecified; Z85.038 Personal history of other malignant neoplasm of large intestine; Z86.79 Personal history of other diseases of the circulatory system; Z87.891 Personal history of nicotine dependence; Z95.5 Presence of coronary angioplasty implant and graft; Z99.81 Dependence on supplemental oxygen; Z79.01 Long term (current) use of anticoagulants; Z79.02 Long term (current) use of antithrombotics/antiplatelets; Z85.51 Personal history of malignant neoplasm of bladder; Z79.83 Long term (current) use of bisphosphonates; Z79.82 Long term (current) use of aspirin; Z79.84 Long term (current) use of oral hypoglycemic drugs; Z79.899 Other long term (current) drug therapy; Z88.6 Allergy status to analgesic agent; Z88.5 Allergy status to narcotic agent; Z88.0 Allergy status to penicillin
CPT/HCPCS: 96361 ×3; 96360; 99285; 36415; 94640 ×2; 94760; 93005; 93458; 76937; 85379; 80053; 80048; 83735; 84443; 84484; 85025 ×2; 85610; 85730; G0378 ×2; C9600; C1769 ×2; C1887; C1894; C1725 ×2; C1874 ×2; J2250; J3010; J1644; Q9967; J2001; J2305

== ENCOUNTER 2023-09-22 20:21 | Emergency (ER) | payer MEDICARE, BC ==
[2023-09-22 21:04] VITALS: RESP 18
--- NOTE | 2023-09-22 21:37 | ED ---
General Adult HPI - General Chief complaint: Chest Pain Stated complaint: Heart Palpitations Time Seen by Provider: 09/22/23 21:04 Source: patient, EMS Mode of arrival: EMS Limitations: no limitations - History of Present Illness Initial comments: Dictation was produced using [employer] dictation software. please excuse any grammatical, word or spelling errors. Chief Complaint: 78 year female presents with several minutes episode of pal pitations History of Present Illness: Patient is 78-year-old female presents to the emergency department after having had episode of palpitations. States that it lasted for couple minutes. Denies any chest pain. She states that the symptoms resolved. She called EMS who told her that she perhaps may have gone in and out of A. fib. She does have a history of A. fib. She takes a few medications. Recently had a coronary artery stent placed. Patient is asymptomatic at the bedside. The ROS documented in this emergency department record has been reviewed and confirmed by me. Those systems with pertinent positive or negative responses have been documented in the HPI. All other systems are other negative and/or noncontributory. - Related Data Home Medications Medication Instructions Recorded Confirmed ALPRAZolam [Xanax] 0.125 mg PO BID PRN 09/15/23 09/15/23 Albuterol Nebulized [Ventolin 2.5 mg INHALATION RT-Q6H PRN 09/15/23 09/15/23 Nebulized] Albuterol Sulfate [Ventolin HFA] 1 - 2 puff INHALATION RT-Q6H PRN 09/15/23 Alendronate Sodium [Fosamax] 70 mg PO Q7DAYS 09/15/23 09/15/23 Aspirin EC [Ecotrin Low Dose] 81 mg PO DAILY 09/15/23 09/15/23 Cholecalciferol [Vitamin D3 (25 50 mcg PO DAILY 09/15/23 09/15/23 Mcg = 1000 Iu)] Empagliflozin [Jardiance] 10 mg PO DAILY 09/15/23 09/15/23 Fluticasone Nasal [place] [Flonase 1 spray EA NOSTRIL BID PRN 09/15/23 09/15/23 Nasal [place]] Isosorbide Mononitrate ER [Imdur] 30 mg PO DAILY 09/15/23 09/15/23 L.acidoph,Paracasei, B.lactis 1 cap PO DAILY 09/15/23 09/15/23 [Probiotic] Montelukast [Singulair] 10 mg PO HS 09/15/23 09/15/23 Multivitamin/Iron/Folic Acid 1 tab PO DAILY 09/15/23 09/15/23 [Centrum Complete Multivit Tab] Nitroglycerin Sl Tabs [Nitrostat] 0.4 mg SUBLINGUAL Q5M PRN 09/15/23 09/15/23 Tiotropium Br/Olodaterol HCl 2 spray INHALATION RT-DAILY 09/15/23 09/15/23 [Stiolto Respimat Inhal [place]] buPROPion [Wellbutrin] 75 mg PO DAILY 09/15/23 09/15/23 diphenhydrAMINE HCL [Benadryl] 25 mg PO BID PRN 09/15/23 09/15/23 Previous Rx's Medication Instructions Recorded Apixaban [Eliquis] 2.5 mg PO BID #60 tab 09/16/23 Clopidogrel [Plavix] 75 mg PO DAILY #30 tab 09/16/23 Diltiazem Cd [Cardizem CD] 240 mg PO DAILY #30 cap 09/16/23 Furosemide [Lasix] 40 mg PO DAILY #30 tab 09/16/23 Allergies Allergy/AdvReac Type Severity Reaction Status Date / Time acetaminophen [From Tylenol] Allergy Unknown Verified 09/22/23 20:51 aclidinium Allergy Unknown Verified 09/22/23 20:51 [From Tudorza Pressair] lisinopril Allergy Unknown Verified 09/22/23 20:51 morphine Allergy Unknown Verified 09/22/23 20:51 Penicillins Allergy Unknown Verified 09/22/23 20:51 Ysevlyj-VRI-VmQ Reductase Allergy Unknown Verified 09/22/23 20:51 Inhibitor aspirin AdvReac Nausea & Verified 09/22/23 20:51 Vomiting Review of Systems ROS Statement: Those systems with pertinent positive or pertinent negative responses have been documented in the HPI. ROS Other: All systems not noted in ROS Statement are negative. Past Medical History Past Medical History: Atrial Fibrillation, COPD Additional Past Medical History / Comment(s): emphysema, osteoporosis History of Any Multi-Drug Resistant Organisms: None Reported Past Surgical History: Appendectomy, Bowel Resection, Cholecystectomy, Heart Catheterization With Stent Date of Last Stent Placement:: 09/15/2023 Past Psychological History: No Psychological Hx Reported Smoking Status: Former smoker Past Alcohol Use History: None Reported Past Drug Use History: None Reported General Exam - General Exam Comments Initial Comments: PHYSICAL EXAM: General Impression: Alert and oriented x3, not in acute distress HEENT: Normocephalic atraumatic, extra-ocular movements intact, pupils equal and reactive to light bilaterally, mucous membranes moist. Cardiovascular: Heart regular rate and rhythm Chest: Able to complete full sentences, no retractions, no tachypnea Abdomen: abdomen soft, non-tender, non-distended, no organomegaly Musculoskeletal: Pulses present and equal in all extremities, no peripheral edema Motor: no focal deficits noted Neurological: CN II-XII grossly intact, no focal motor or sensory deficits noted Skin: Intact with no visualized rashes Psych: Normal affect and mood Limitations: no limitations Course Vital Signs 09/22/23 09/22/23 20:46 22:50 Temperature 98.4 F 98.2 F Pulse Rate 67 67 Respiratory 18 18 Rate Blood Pressure 130/70 161/78 O2 Sat by Pulse 94 L 94 L Oximetry EKG Findings - EKG Comments: EKG Findings:: My EKG interpretation: Ventricular rate 70, sinus rhythm with sinus arrhythmia,. 118, QRS 85, QTC 410. No KS prolongation, no QTC prolongation, no ST or T-wave changes noted. Overall, this EKG is unremarkable Medical Decision Making - Medical Decision Making Was pt. sent in by a medical professional or institution (, PA, TONG SETTER, urgent care, hospital, or long term...) When possible be specific @ -No Did you speak to anyone other than the patient for history (EMS, parent, family, police, friend...)? What history was obtained from this source @ -No Did you review nursing and triage notes (agree or disagree)? Why? @ -I reviewed and agree with nursing and triage notes Were old charts reviewed (outside hosp., previous admission, EMS record, old EKG, old radiological studies, urgent care reports/EKG's, long term records)? Report findings @ -No old charts were reviewed Differential Diagnosis (chest pain, altered mental status, abdominal pain women, abdominal pain men, vaginal bleeding, musculoskeletal, weakness, fever, dyspnea, syncope, headache, dizziness, GI bleed, back pain, seizure, CVA, palpatations, mental health)? @ - Differential Palpitations: Ventricular arrhythmias, atrial arrhythmias, myocardial infarction, anemia, thyrotoxicosis, electrolyte imbalance, hypokalemia, pulmonary embolism, pulmonary disease, drugs, alcohol, anxiety, stress.... This is not meant to be an all-inclusive list. EKG interpreted by me (3pts min.). @ -See above X-rays interpreted by me (1pt min.). @ -Chest x-ray shows no acute cardio pulmonary process. CT interpreted by me (1pt min.). @ -None done U/S interpreted by me (1pt. min.). @ -None done What testing was considered but not performed or refused? (CT, X-rays, U/S, labs)? Why? @ -None What meds were considered but not given or refused? Why? @ -None Did you discuss the management of the patient with other professionals (professionals i.e. , PA, TONG SETTER, lab, RT, psych nurse, social welfare research worker, migratory worker, teacher, fisheries enforcement officer, director case management)? Give summary @ -No Was smoking cessation discussed for >3mins.? @ -No Was critical care preformed (if so, how long)? @ -No Were there social determinants of health that impacted care today? How? (Homelessness, low income, unemployed, alcoholism, drug addiction, transportation, low edu. Level, literacy, decrease access to med. care, long-term, rehab)? @ -No Was there de-escalation of care discussed even if they declined (Discuss DNR or withdrawal of care, Hospice)? DNR status @ -No What co-morbidities impacted this encounter? (DM, HTN, Smoking, COPD, CAD, Cancer, CVA, ARF, Chemo, Hep., AIDS, mental health diagnosis, sleep apnea, morbid obesity)? @ -None Was patient admitted / discharged? Hospital course, mention meds given and route, prescriptions, significant lab abnormalities, going to OR and other pertinent info. @ -6 revealed failed presents to the emergency department for chief complaint of palpitations. She does have a history of A. fib she is on all the appropriate medications. Vital signs are stable. Patient reports no symptoms. Laboratory evaluation is unremarkable. Chest x-ray is nonacute. Patient observed in emergency department for approximately 3 hours and 41 minutes. Patient reevaluated bedside at 12:00 AM on a be stable medical condition. Patient be discharged. Undiagnosed new problem with uncertain prognosis? @ -No Drug Therapy requiring intensive monitoring for toxicity (Heparin, Nitro, Insulin, Cardizem)? @ -No Were any procedures done? @ -No Diagnosis/symptom? Acute, or Chronic, or Acute on Chronic? Uncomplicated (without systemic symptoms) or Complicated (systemic symptoms)? @ -Palpitations Side effects of treatment? @ -No Exacerbation, Progression, or Severe Exacerbation? @ -No Poses a threat to life or bodily function? How? (Chest pain, USA, PR, pneumonia, PE, COPD, DKA, ARF, appy, cholecystitis, CVA, Diverticulitis, Homicidal, Suicidal, threat to staff... and all critical care pts) @ -No - Lab Data Result diagrams: 09/22/23 22:30 09/22/23 22:30 Lab Results 09/22/23 09/22/23 09/22/23 Range/Units 22:30 22:30 22:30 WBC 7.7 (3.8-10.6) k/uL RBC 4.41 (3.80-5.40) m/uL Hgb 13.9 (11.4-16.0) gm/dL Hct 42.8 (34.0-46.0) % MCV 97.2 (80.0-100.0) fL MCH 31.6 (25.0-35.0) pg MCHC 32.5 (31.0-37.0) g/dL RDW 13.4 (11.5-15.5) % Plt Count 229 (150-450) k/uL MPV 8.6 Neutrophils % 58 % Lymphocytes % 29 % Monocytes % 7 % Eosinophils % 4 % Basophils % 0 % Neutrophils # 4.5 (1.3-7.7) k/uL Lymphocytes # 2.2 (1.0-4.8) k/uL Monocytes # 0.6 (0-1.0) k/uL Eosinophils # 0.3 (0-0.7) k/uL Basophils # 0.0 (0-0.2) k/uL PT 10.3 (10.0-12.5) sec INR 0.9 (<1.2) APTT 24.4 (22.0-30.0) sec Sodium 138 (137-145) mmol/L Potassium 3.9 (3.5-5.1) mmol/L Chloride 99 (98-107) mmol/L Carbon Dioxide 31 H (22-30) mmol/L Anion Gap 8 mmol/L BUN 25 H (7-17) mg/dL Creatinine 1.09 H (0.52-1.04) mg/dL Est GFR (CKD-EPI)AfAm 57 (>60 ml/min/1.73 sqM) Est GFR (CKD-EPI)NonAf 50 (>60 ml/min/1.73 sqM) Glucose 108 H (74-99) mg/dL Calcium 10.8 H (8.4-10.2) mg/dL Magnesium 2.0 (1.6-2.3) mg/dL Total Bilirubin 0.8 (0.2-1.3) mg/dL AST 33 (14-36) U/L ALT 33 (4-34) U/L Alkaline Phosphatase 86 (38-126) U/L Troponin I (0.000-0.034) ng/mL Total Protein 7.0 (6.3-8.2) g/dL Albumin 4.1 (3.5-5.0) g/dL 09/22/23 Range/Units 22:30 WBC (3.8-10.6) k/uL RBC (3.80-5.40) m/uL Hgb (11.4-16.0) gm/dL Hct (34.0-46.0) % MCV (80.0-100.0) fL MCH (25.0-35.0) pg MCHC (31.0-37.0) g/dL RDW (11.5-15.5) % Plt Count (150-450) k/uL MPV Neutrophils % % Lymphocytes % % Monocytes % % Eosinophils % % Basophils % % Neutrophils # (1.3-7.7) k/uL Lymphocytes # (1.0-4.8) k/uL Monocytes # (0-1.0) k/uL Eosinophils # (0-0.7) k/uL Basophils # (0-0.2) k/uL PT (10.0-12.5) sec INR (<1.2) APTT (22.0-30.0) sec Sodium (137-145) mmol/L Potassium (3.5-5.1) mmol/L Chloride (98-107) mmol/L Carbon Dioxide (22-30) mmol/L Anion Gap mmol/L BUN (7-17) mg/dL Creatinine (0.52-1.04) mg/dL Est GFR (CKD-EPI)AfAm (>60 ml/min/1.73 sqM) Est GFR (CKD-EPI)NonAf (>60 ml/min/1.73 sqM) Glucose (74-99) mg/dL Calcium (8.4-10.2) mg/dL Magnesium (1.6-2.3) mg/dL Total Bilirubin (0.2-1.3) mg/dL AST (14-36) U/L ALT (4-34) U/L Alkaline Phosphatase (38-126) U/L Troponin I 0.021 (0.000-0.034) ng/mL Total Protein (6.3-8.2) g/dL Albumin (3.5-5.0) g/dL Disposition Clinical Impression: Heart palpitations Disposition: HOME SELF-CARE Condition: Good Instructions (If sedation given, give patient instructions): Heart Palpitations (ED) Is patient prescribed a controlled substance at d/c from ED?: No Referrals: Geovani Rolle MD [Primary Care Provider] - 1-2 days Time of Disposition: 00:04
--- NOTE | 2023-09-22 21:55 | XR ---
EXAMINATION TYPE: XR chest 2V DATE OF EXAM: 09/22/2023 9:39 PM CLINICAL INDICATION:Female, 78 years old with history of dysrhythmia; PHH COMPARISON: None TECHNIQUE: XR chest 2V Frontal and lateral views of the chest. FINDINGS: Lungs/Pleura: There is flattening of the diaphragm with increased lucency of the lungs. No evidence o f pneumothorax, pleural effusion or focal consolidation. Pulmonary vascularity: Unremarkable. Heart/mediastinum: Cardiomediastinal silhouette is unremarkable. Musculoskeletal: No acute osseous pathology. Other findings: None IMPRESSION: 1. No acute cardiopulmonary disease process. 2. COPD changes.
[2023-09-22 22:54] VITALS: TEMP 98.2
[2023-09-22 23:25] LABS: Basophils % (A) 0 %; Eosinophils # (A) 0.3 k/uL (0-0.7); Eosinophils % (A) 4 %; HCT 42.8 % (34.0-46.0); HGB 13.9 gm/dL (11.4-16.0); Lymphocytes # (A) 2.2 k/uL (1.0-4.8); Lymphocytes % (A) 29 %; MCH 31.6 pg (25.0-35.0); MCHC 32.5 g/dL (31.0-37.0); MCV 97.2 fL (80.0-100.0); Mean Platelet Volume 8.6; Monocytes # (A) 0.6 k/uL (0-1.0); Monocytes % (A) 7 %; Neutrophils # (A) 4.5 k/uL (1.3-7.7); Neutrophils % (A) 58 %; Platelet Count 229 k/uL (150-450); RBC 4.41 m/uL (3.80-5.40); RDW 13.4 % (11.5-15.5); WBC 7.7 k/uL (3.8-10.6)
[2023-09-22 23:28] LABS: INR 0.9 (<1.2); Partial Thromboplastin Time 24.4 sec (22.0-30.0); Prothrombin Time 10.3 sec (10.0-12.5)
[2023-09-22 23:34] LABS: ALT 33 U/L (4-34); AST 33 U/L (14-36); African American GFR (CKD) 57 (>60 ml/min/1.73 sqM); Albumin 4.1 g/dL (3.5-5.0); Alkaline Phosphatase 86 U/L (38-126); Anion Gap 8 mmol/L; Blood Urea Nitrogen 25 mg/dL (7-17); Calcium 10.8 mg/dL (8.4-10.2); Carbon Dioxide 31 mmol/L (22-30); Chloride 99 mmol/L (98-107); Glucose 108 mg/dL (74-99); Non-African American GFR(CKD) 50 (>60 ml/min/1.73 sqM); Potassium 3.9 mmol/L (3.5-5.1); Sodium 138 mmol/L (137-145); Total Bilirubin 0.8 mg/dL (0.2-1.3)
[2023-09-23 00:56] VITALS: BP 158/68; PULSE 68
== END 2023-09-23 00:42 | disposition home or self-care (01) ==
LOC: EC 20:21
DX: R00.2 Palpitations (principal); I48.91 Unspecified atrial fibrillation; J44.9 Chronic obstructive pulmonary disease, unspecified; Z87.891 Personal history of nicotine dependence; Z79.51 Long term (current) use of inhaled steroids; Z79.899 Other long term (current) drug therapy; Z79.82 Long term (current) use of aspirin; Z88.5 Allergy status to narcotic agent; Z88.0 Allergy status to penicillin; Z88.6 Allergy status to analgesic agent; Z88.8 Allergy status to other drugs, medicaments and biological substances; Z90.49 Acquired absence of other specified parts of digestive tract; Z95.5 Presence of coronary angioplasty implant and graft
CPT/HCPCS: 36415; 71046; 80053; 83735; 84484; 85025; 85610; 85730; 93005; 99285

== ENCOUNTER 2023-10-23 18:36 | Inpatient (IN) | payer MEDICARE, BC ==
[2023-10-23] MEDS ORDERED: SODIUM CHLORIDE 0.9% 1,000 ML IV STA (18:44)
--- NOTE | 2023-10-23 18:51 | ED ---
General Adult HPI - General Stated complaint: Afib Time Seen by Provider: 10/23/23 18:40 Source: patient, RN notes reviewed, old records reviewed - History of Present Illness Initial comments: This is a 78-year-old female presents emergency Department with a history of atrial fibrillation. Patient states this morning when she woke up she was very lightheaded and thought she might pass out so she went to the hospital. At the [facility] she was found to be in atrial fibrillation with rapid ventricular response at a rate of 200. 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 Patient is already on eliquis and no heparin as needed. Patient continues to be in A. fib with rapid ventricular response according to EMS. Patient states she feels considerably better than earlier. The EMS personnel stated that she was in the 1 teens to 140 beats a minute in route. Patient states she does feel better and she is not having as much chest pressure she did earlier. - Related Data Home Medications Medication Instructions Recorded Confirmed ALPRAZolam [Xanax] 0.125 mg PO BID PRN 09/15/23 09/15/23 Albuterol Nebulized [Ventolin 2.5 mg INHALATION RT-Q6H PRN 09/15/23 09/15/23 Nebulized] Albuterol Sulfate [Ventolin HFA] 1 - 2 puff INHALATION RT-Q6H PRN 09/15/23 09/15/23 Alendronate Sodium [Fosamax] 70 mg PO Q7DAYS 09/15/23 09/15/23 Aspirin EC [Ecotrin Low Dose] 81 mg PO DAILY 09/15/23 09/15/23 Cholecalciferol [Vitamin D3 (25 50 mcg PO DAILY 09/15/23 09/15/23 Mcg = 1000 Iu)] Empagliflozin [Jardiance] 10 mg PO DAILY 09/15/23 09/15/23 Fluticasone Nasal [place] [Flonase 1 spray EA NOSTRIL BID PRN 09/15/23 09/15/23 Nasal [place]] Isosorbide Mononitrate ER [Imdur] 30 mg PO DAILY 09/15/23 09/15/23 L.acidoph,Paracasei, B.lactis 1 cap PO DAILY 09/15/23 09/15/23 [Probiotic] Montelukast [Singulair] 10 mg PO HS 09/15/23 09/15/23 Multivitamin/Iron/Folic Acid 1 tab PO DAILY 09/15/23 09/15/23 [Centrum Complete Multivit Tab] Nitroglycerin Sl Tabs [Nitrostat] 0.4 mg SUBLINGUAL Q5M PRN 09/15/23 09/15/23 Tiotropium Br/Olodaterol HCl 2 spray INHALATION RT-DAILY 09/15/23 09/15/23 [Stiolto Respimat Inhal [place]] buPROPion [Wellbutrin] 75 mg PO DAILY 09/15/23 09/15/23 diphenhydrAMINE HCL [Benadryl] 25 mg PO BID PRN 09/15/23 09/15/23 Previous Rx's Medication Instructions Recorded Apixaban [Eliquis] 2.5 mg PO BID #60 tab 09/16/23 Clopidogrel [Plavix] 75 mg PO DAILY #30 tab 09/16/23 Diltiazem Cd [Cardizem CD] 240 mg PO DAILY #30 cap 09/16/23 Furosemide [Lasix] 40 mg PO DAILY #30 tab 09/16/23 Allergies Allergy/AdvReac Type Severity Reaction Status Date / Time aclidinium Allergy Unknown Verified 10/23/23 18:49 [From Lev Lilly] lisinopril Allergy Unknown Verified 10/23/23 18:49 morphine Allergy Unknown Verified 10/23/23 18:49 Penicillins Allergy Unknown Verified 10/23/23 18:49 [id number] Reductase Allergy Unknown Verified 10/23/23 18:49 Inhibitor aspirin AdvReac Nausea & Verified 10/23/23 18:49 Vomiting Review of Systems ROS Statement: Those systems with pertinent positive or pertinent negative responses have been documented in the HPI. ROS Other: All systems not noted in ROS Statement are negative. Past Medical History Past Medical History: Atrial Fibrillation, COPD Additional Past Medical History / Comment(s): emphysema, osteoporosis History of Any Multi-Drug Resistant Organisms: None Reported Past Surgical History: Appendectomy, Bowel Resection, Cholecystectomy, Heart Catheterization With Stent Date of Last Stent Placement:: 09/15/2023 Past Psychological History: No Psychological Hx Reported Smoking Status: Former smoker Past Alcohol Use History: None Reported Past Drug Use History: None Reported General Exam - General Exam Comments Initial Comments: GENERAL: Patient is well-developed and well-nourished. Patient is nontoxic and well- hydrated and is in mild distress. ENT: Neck is soft and supple. No significant lymphadenopathy is noted. Oropharynx is clear. Moist mucous membranes. Neck has full range of motion without el iciting any pain. EYES: The sclera were anicteric and conjunctiva were pink and moist. Extraocular movements were intact and pupils were equal round and reactive to light. Eyelids were unremarkable. PULMONARY: Unlabored respirations. Good breath sounds bilaterally. No audible rales rhonchi or wheezing was noted. CARDIOVASCULAR: Patient is tachycardic at 135 beats a minute and is irregular ABDOMEN: Soft and nontender with normal bowel sounds. No palpable organomegaly was noted. There is no palpable pulsatile mass. SKIN: Skin is clear with no lesions or rashes and otherwise unremarkable. NEUROLOGIC: Patient is alert and oriented x3. Cranial nerves II through XII are grossly intact. Motor and sensory are also intact. Normal speech, volume and content. Symmetrical smile. MUSCULOSKELETAL: Normal extremities with adequate strength and full range of motion. No lower extremity swelling or edema. No calf tenderness. LYMPHATICS: No significant lymphadenopathy is noted PSYCHIATRIC: Normal psychiatric evaluation. Course Vital Signs 10/23/23 18:39 Temperature 98.3 F Pulse Rate 151 H Respiratory 18 Rate Blood Pressure 116/99 O2 Sat by Pulse 96 Oximetry Medical Decision Making - Medical Decision Making EKG is interpreted by myself. EKG shows atrial fibrillation with rapid ventricular response at 143 bpm QRS is 77 QT of 03 QTC is 386 per patient's EKG shows no ST segment elevation or depression. Was pt. sent in by a medical professional or institution (, PA, MEETING COORDINATOR, urgent care, hospital, or long-term...) When possible be specific @ -Patient was sent to us from [facility] Did you speak to anyone other than the patient for history (EMS, parent, family, police, friend...)? What history was obtained from this source @ -EMS gave us a significant amount history Did you review nursing and triage notes (agree or disagree)? Why? @ -I reviewed and agree with nursing and triage notes Were old charts reviewed (outside hosp., previous admission, EMS record, old EKG, old radiological studies, urgent care reports/EKG's, long-term records)? Report findings @ -I reviewed charts that the patient came with an lab work with the patient Differential Diagnosis (chest pain, altered mental status, abdominal pain women, abdominal pain men, vaginal bleeding, weakness, fever, dyspnea, syncope, headache, dizziness, GI bleed, back pain, seizure, CVA, palpatations, mental health, musculoskeletal)? @ -Differential Palpitations Ventricular arrhythmias, atrial arrhythmias, myocardial infarction, anemia, thyrotoxicosis, electrolyte imbalance, hypokalemia, pulmonary embolism, pulmonary disease, drugs, alcohol, anxiety, stress.... This is not meant to be an all-inclusive list. EKG interpreted by me (3pts min.). @ -As above X-rays interpreted by me (1pt min.). @ -Chest x-ray showed no acute abnormality CT interpreted by me (1pt min.). @ -None done U/S interpreted by me (1pt. min.). @ -None done What testing was considered but not performed or refused? (CT, X-rays, U/S, labs)? Why? @ -None What meds were considered but not given or refused? Why? @ -None Did you discuss the management of the patient with other professionals (professionals i.e. , PA, MEETING COORDINATOR, lab, RT, psych nurse, social work associate, base ply hand, teacher, deck officer, watch caser)? Give summary @ -I spoke with sound physician's and they agreed to admit the patient admitted the patient wrote admitting orders Was smoking cessation discussed for >3mins.? @ -No Was critical care preformed (if so, how long)? @ -35 minutes Were there social determinants of health that impacted care today? How? (Homelessness, low income, unemployed, alcoholism, drug addiction, transportation, low edu. Level, literacy, decrease access to med. care, retirement, rehab)? @ -No Was there de-escalation of care discussed even if they declined (Discuss DNR or withdrawal of care, Hospice)? DNR status @ -No What co-morbidities impacted this encounter? (DM, HTN, Smoking, COPD, CAD, Cancer, CVA, ARF, Chemo, Hep., AIDS, mental health diagnosis, sleep apnea, morbid obesity)? @ -None Was patient admitted / discharged? Hospital course, mention meds given and route, prescriptions, significant lab abnormalities, going to OR and other pertinent info. @ -Patient was given a 5 mg bolus of Cardizem and then started on a 10 mg/m drip. Patient's heart rate was down in the 120s. I spoke with sound physician's and he agreed to admit the patient to the patient wrote admitting orders Undiagnosed new problem with uncertain prognosis? @ -No Drug Therapy requiring intensive monitoring for toxicity (Heparin, Nitro, Insulin, Cardizem)? @ -No Were any procedures done? @ -No Diagnosis/symptom? @ -A. fib with rapid ventricular response Acute, or Chronic, or Acute on Chronic? @ -Acute Uncomplicated (without systemic symptoms) or Complicated (systemic symptoms)? @ -Complicated Side effects of treatment? @ -No Exacerbation, Progression, or Severe Exacerbation? @ -No Poses a threat to life or bodily function? How? (Chest pain, [place], [place], pneumonia, PE, COPD, DKA, ARF, appy, cholecystitis, CVA, Diverticulitis, Homicidal, Suicidal, threat to staff... and all critical care pts) @ -Yes this can lead to poor perfusion and end organ dysfunction - Lab Data Result diagrams: 10/23/23 19:00 10/23/23 19:00 Lab Results 10/23/23 10/23/23 10/23/23 Range/Units 19:00 19:00 19:00 WBC 10.0 (3.8-10.6) k/uL RBC 4.92 (3.80-5.40) m/uL Hgb 16.0 (11.4-16.0) gm/dL Hct 48.5 H (34.0-46.0) % MCV 98.7 (80.0-100.0) fL MCH 32.6 (25.0-35.0) pg MCHC 33.1 (31.0-37.0) g/dL RDW 15.2 (11.5-15.5) % Plt Count 282 (150-450) k/uL MPV 8.7 Neutrophils % 67 % Lymphocytes % 21 % Monocytes % 8 % Eosinophils % 2 % Basophils % 0 % Neutrophils # 6.7 (1.3-7.7) k/uL Lymphocytes # 2.1 (1.0-4.8) k/uL Monocytes # 0.8 (0-1.0) k/uL Eosinophils # 0.2 (0-0.7) k/uL Basophils # 0.0 (0-0.2) k/uL Macrocytosis Slight Sodium 138 (137-145) mmol/L Potassium 3.6 (3.5-5.1) mmol/L Chloride 100 (98-107) mmol/L Carbon Dioxide 30 (22-30) mmol/L Anion Gap 8 mmol/L BUN 30 H (7-17) mg/dL Creatinine 0.94 (0.52-1.04) mg/dL Est GFR (CKD-EPI)AfAm 68 (>60 ml/min/1.73 sqM) Est GFR (CKD-EPI)NonAf 59 (>60 ml/min/1.73 sqM) Glucose 96 (74-99) mg/dL Calcium 10.8 H (8.4-10.2) mg/dL Magnesium 2.0 (1.6-2.3) mg/dL Total Bilirubin 0.7 (0.2-1.3) mg/dL AST 32 (14-36) U/L ALT 38 H (4-34) U/L Alkaline Phosphatase 107 (38-126) U/L Troponin I 0.037 H* (0.000-0.034) ng/mL Total Protein 6.6 (6.3-8.2) g/dL Albumin 3.9 (3.5-5.0) g/dL Critical Care Time Critical Care Time: Yes Total Critical Care Time: 35 Disposition Clinical Impression: Atrial fibrillation with rapid ventricular response Disposition: ADMITTED IP TO THIS HOSP Referrals: Geovani Rolle MD [Primary Care Provider] - 1-2 days Time of Disposition: 20:45
[2023-10-23 19:24] LABS: Basophils % (A) 0 %; Eosinophils # (A) 0.2 k/uL (0-0.7); Eosinophils % (A) 2 %; HCT 48.5 % (34.0-46.0); Lymphocytes # (A) 2.1 k/uL (1.0-4.8); Lymphocytes % (A) 21 %; MCH 32.6 pg (25.0-35.0); MCHC 33.1 g/dL (31.0-37.0); MCV 98.7 fL (80.0-100.0); Macrocytosis Slight; Mean Platelet Volume 8.7; Monocytes # (A) 0.8 k/uL (0-1.0); Monocytes % (A) 8 %; Neutrophils # (A) 6.7 k/uL (1.3-7.7); Neutrophils % (A) 67 %; Platelet Count 282 k/uL (150-450); RBC 4.92 m/uL (3.80-5.40); RDW 15.2 % (11.5-15.5)
[2023-10-23 19:34] LABS: ALT 38 U/L (4-34); AST 32 U/L (14-36); African American GFR (CKD) 68 (>60 ml/min/1.73 sqM); Albumin 3.9 g/dL (3.5-5.0); Alkaline Phosphatase 107 U/L (38-126); Anion Gap 8 mmol/L; Blood Urea Nitrogen 30 mg/dL (7-17); Calcium 10.8 mg/dL (8.4-10.2); Carbon Dioxide 30 mmol/L (22-30); Chloride 100 mmol/L (98-107); Glucose 96 mg/dL (74-99); Non-African American GFR(CKD) 59 (>60 ml/min/1.73 sqM); Potassium 3.6 mmol/L (3.5-5.1); Sodium 138 mmol/L (137-145); Total Bilirubin 0.7 mg/dL (0.2-1.3); Total Protein 6.6 g/dL (6.3-8.2)
--- NOTE | 2023-10-23 19:59 | XR ---
EXAMINATION TYPE: XR chest 2V DATE OF EXAM: 10/23/2023 7:35 PM CLINICAL INDICATION:Female, 78 years old with history of dysrhythmia; COMPARISON: Chest radiographs from 09/22/2023. TECHNIQUE: XR chest 2V Frontal and lateral views of the chest. FINDINGS: Lungs/Pleura: There is flattening of the diaphragm with increased lucency of the lungs. No evidence o f pneumothorax, pleural effusion or focal consolidation. Pulmonary vascularity: Unremarkable. Heart/mediastinum: Cardiomediastinal silhouette is unremarkable. Musculoskeletal: No acute osseous pathology. IMPRESSION: 1. No acute cardiopulmonary disease process. 2. COPD changes.
[2023-10-23] MEDS ORDERED: DILTIAZEM DRIP BOLUS FROM BAG 1 MG SOLN IV ONE (20:03)
[2023-10-23] MEDS: DILTIAZEM 125 MG in SODIUM CHLORIDE 0.9% 100 ML IV SCH (20:23)
[2023-10-23] MEDS ORDERED: NITROGLYCERIN SL TABS 0.4 MG TAB SUBLINGUAL PRN (20:45)
[2023-10-24] MEDS ORDERED: ALPRAZolam 0.25 MG TAB PO PRN (00:05)
--- NOTE | 2023-10-24 00:06 | P.HPIM ---
History of Present Illness H&P Date: 10/23/23 Patient is a 78-year-old female with a PMH of paroxysmal A. fib (on Eliquis), COPD with chronic hypoxic respiratory failure on 2 L nasal cannula oxygen at home, CAD status post stenting, and hypertension who presents to the emergency room with complaints of palpitations. Patient notes that she developed palpitations shortly after waking up this morning with some associated shortness of breath which worsened throughout the day. She denies experiencing chest discomfort, fever, chills, cough, nausea, vomiting, diaphoresis, or dizziness. Notes her palpitations have improved at the time of interview. In the emergency room EKG revealed A. fib with RVR at 143 bpm as reviewed by me. Chest x-ray was unremarkable. Laboratory evaluation was remarkable for troponin of 0.037 with BUN 30 and creatinine 0.94. ED documentation reviewed and case discussed with ED provider. Review of systems: Pertinent positives and negatives as discussed in HPI, a complete review of sy stems was performed and all other systems are negative. Physical examination: Vital signs reviewed General: non toxic, no distress, appears at stated age, obese Derm: no unusual rashes/lesions, warm Head: atraumatic, normocephalic, symmetric Eyes: EOMI, no lid lag, anicteric sclera, pupils equal round reactive to light ENT: Nose and ears atraumatic Neck: No cervical lymphadenopathy, trachea midline, supple Mouth: no lip lesion, mucus membranes moist Cardiovascular: Irregularly irregular, no murmur, positive dorsalis pedis pulse bilateral, no edema Lungs: CTA bilateral, no rhonchi, no rales, no accessory muscle use Abdominal: soft, nontender to palpation, no guarding Ext: muscle strength 5 out of 5 in all 4 extremities grossly, no gross muscle atrophy, no contractures, Neuro: CN II-XI grossly intact, no gross focal neuro deficits Psych: Alert, oriented, appropriate affect Assessment: A. fib with RVR Chronic conditions: COPD, CAD, hypertension Imaging: In the emergency room EKG revealed A. fib with RVR at 143 bpm as reviewed by me. Chest x-ray was unremarkable. Data Review: Laboratory evaluation was remarkable for troponin of 0.037 with BUN 30 and creatinine 0.94. Plan: Continue patient on Cardizem infusion Cardiology consulted Cardiac monitoring Trend troponin Continue with home Cardizem 240 mg by mouth daily dose for now Continue home Eliquis dose Resume remaining home medications DVT prophylaxis: Eliquis The patient is admitted with an anticipated greater than 2 midnight stay for evaluation of Afib CODE STATUS: Full Code Discussed with: Patient Anticipated discharge place: Home Past Medical History Past Medical History: Atrial Fibrillation, COPD Additional Past Medical History / Comment(s): emphysema, osteoporosis History of Any Multi-Drug Resistant Organisms: None Reported Past Surgical History: Appendectomy, Bowel Resection, Cholecystectomy, Heart Catheterization With Stent Date of Last Stent Placement:: 09/15/2023 Past Psychological History: No Psychological Hx Reported Smoking Status: Former smoker Past Alcohol Use History: None Reported Past Drug Use History: None Reported Medications and Allergies Home Medications Medication Instructions Recorded Confirmed Type ALPRAZolam [Xanax] 0.125 mg PO BID PRN 09/15/23 10/23/23 History Albuterol Nebulized [Ventolin 2.5 mg INHALATION RT-Q6H PRN 09/15/23 10/23/23 History Nebulized] Albuterol Sulfate [Ventolin HFA] 1 - 2 puff INHALATION RT-Q6H PRN 09/15/23 10/23/23 History Alendronate Sodium [Fosamax] 70 mg PO Q7DAYS 09/15/23 10/23/23 History Aspirin EC [Ecotrin Low Dose] 81 mg PO DAILY 09/15/23 10/23/23 History Cholecalciferol [Vitamin D3 (25 50 mcg PO DAILY 09/15/23 10/23/23 History Mcg = 1000 Iu)] Empagliflozin [Jardiance] 10 mg PO DAILY 09/15/23 10/23/23 History Fluticasone Nasal [place] [Flonase 1 spray EA NOSTRIL BID PRN 09/15/23 10/23/23 History Nasal [place]] Isosorbide Mononitrate ER [Imdur] 30 mg PO DAILY 09/15/23 10/23/23 History L.acidoph,Paracasei, B.lactis 1 cap PO DAILY 09/15/23 10/23/23 History [Probiotic] Montelukast [Singulair] 10 mg PO HS 09/15/23 10/23/23 History Multivitamin/Iron/Folic Acid 1 tab PO DAILY 09/15/23 10/23/23 History [Centrum Complete Multivit Tab] Nitroglycerin Sl Tabs [Nitrostat] 0.4 mg SUBLINGUAL Q5M PRN 09/15/23 10/23/23 History Tiotropium Br/Olodaterol HCl 2 spray INHALATION RT-DAILY 09/15/23 10/23/23 Hi story [Stiolto Respimat Inhal [place]] buPROPion [Wellbutrin] 75 mg PO DAILY 09/15/23 10/23/23 History diphenhydrAMINE HCL [Benadryl] 25 mg PO BID PRN 09/15/23 10/23/23 History Apixaban [Eliquis] 2.5 mg PO BID #60 tab 09/16/23 10/23/23 Rx Clopidogrel [Plavix] 75 mg PO DAILY #30 tab 09/16/23 10/23/23 Rx Diltiazem Cd [Cardizem CD] 240 mg PO DAILY #30 cap 09/16/23 10/23/23 Rx Furosemide [Lasix] 40 mg PO DAILY #30 tab 09/16/23 10/23/23 Rx Potassium Chloride ER [K-Dur 10] 10 meq PO DAILY 10/23/23 10/23/23 History metOLazone [Zaroxolyn] 2.5 mg PO DIRECTED 10/23/23 10/23/23 History Allergies Allergy/AdvReac Type Severity Reaction Status Date / Time aclidinium Allergy Unknown Verified 10/23/23 21:29 [From Lev Lilly] lisinopril Allergy Unknown Verified 10/23/23 21:29 morphine Allergy Unknown Verified 10/23/23 21:29 Penicillins Allergy Unknown Verified 10/23/23 21:29 [id number] Reductase Allergy Unknown Verified 10/23/23 21:29 Inhibitor aspirin AdvReac Nausea & Verified 10/23/23 21:29 Vomiting Physical Exam Vitals: Vital Signs Temp Pulse Resp BP Pulse Ox 10/23/23 18:39 98.3 F 151 H 18 116/99 96 Intake and Output 10/23/23 10/23/23 10/24/23 14:59 22:59 06:59 Intake Total 32.5 Balance 32.5 Intake: Intake, IV Titration 32.5 Amount Diltiazem 125 mg In 32.5 Sodium Chloride 0.9% 100 ml @ 10 MG/HR 10 mls/hr IV .[id number] [facility] Rx#: [id number] Other: Weight 77.111 kg Results CBC & Chem 7: 10/23/23 19:00 10/23/23 19:00 Labs: Abnormal Lab Results - Last 24 Hours (Table) 10/23/23 10/23/23 10/23/23 Range/Units 19:00 19:00 19:00 Hct 48.5 H (34.0-46.0) % BUN 30 H (7-17) mg/dL Calcium 10.8 H (8.4-10.2) mg/dL ALT 38 H (4-34) U/L Troponin I 0.037 H* (0.000-0.034) ng/mL
[2023-10-24] MEDS: DILTIAZEM 125 MG in SODIUM CHLORIDE 0.9% 100 ML IV SCH (05:59)
[2023-10-24 08:50] LABS: LDL Cholesterol,Calculated 94.2 mg/dL (0.0-131.0)
[2023-10-24] MEDS ORDERED: ASPIRIN 325 MG TAB PO SCH (09:00)
[2023-10-24] MEDS ORDERED: APIXABAN 2.5 MG TABLET PO SCH (09:00)
[2023-10-24] MEDS: AMIODARONE 200 MG TAB PO SCH ×2 (09:24→22:22)
[2023-10-24] MEDS: DILTIAZEM CD 240 MG CAP.ER.24H PO SCH (09:25)
[2023-10-24] MEDS: APIXABAN 5 MG TAB PO SCH ×2 (09:25→22:22)
[2023-10-24] MEDS: POTASSIUM CHLORIDE ER 10 MEQ TAB.ER.PRT PO SCH (09:25)
[2023-10-24] MEDS: FUROSEMIDE 40 MG TAB PO SCH (09:26)
[2023-10-24] MEDS: CLOPIDOGREL 75 MG TAB PO SCH (09:26)
[2023-10-24] MEDS: ISOSORBIDE MONONITRATE ER 30 MG TAB.ER.24H PO SCH (09:26)
[2023-10-24] MEDS: NON FORMULARY DRUG (Tiotropium Br/Olodaterol Hcl [Stiolto Respimat Inhal Spray] 4 GM Each) INHALATION SCH (11:46)
--- NOTE | 2023-10-24 14:06 | P.CRDCN ---
History of Present Illness Consult date: 10/24/23 Consult reason: atrial fibrillation (w rvr) History of present illness: History of present illness: This is a 78-year-old female patient of Dr. Irina Mac with past medical history of coronary artery disease with stent of the circumflex in 2009, paroxysmal atrial fibrillation, COPD, bowel cancer and bladder cancer, AAA, chronic hypoxic respiratory failure on home O2 at 2 L nasal cannula as needed, remote history of tobacco use and dependence. We have been asked to evaluate the patient for A. fib with RVR. Patient states that she came into the hospital because she was feeling some chest pressure and felt like she was going to pass out. She later felt she had some palpitations. She complains of feeling weakness. She denies shortness of breath. She does have oxygen that she uses at nighttime. She denies having any cough and no fever. No nausea. No stroke or seizure activity. She has history of smoking and quit in 2013. She has been prescribed metolazone but has not started taking this medication. At the time of this evaluation, patient states her pain is gone. Telemetry is atrial fibrillation. Patient is seen today in the emergency center waiting for a bed on the cardiac stepdown unit. Patient has been started on Cardizem drip. EKG atrial fibrillation with RVR 143 bpm Chest x-ray no acute cardiopulmonary disease process. COPD changes. CBC unremarkable. Electrolytes normal. BUN 30 creatinine 0.9. Calcium 10.8. Magnesium 2.0. Troponin 0.037, 0.028 and 0.02. ALT 38 otherwise liver function tests are normal. Triglycerides 288, cholesterol 206, LDL 94, HDL 54. Home cardiac medications: Eliquis 2.5 mg twice daily, Aspirin 81 mg daily, Plavix 75 mg daily, Cardizem 240 mg daily, Jardiance 10 mg daily, Lasix 40 mg daily, Imdur 30 mg daily, metolazone 2.5 mg on Monday (patient has not started taking this medication), Nitrostat as needed, potassium chloride 10 mEq daily Cardiac catheterization performed 09/15/[address] Chacon revealed 3050 percent RCA stenosis, 30-40% middle and distal LAD stenosis and 90% distal circumflex stenosis. Patient underwent PCI of the distal circumflex. Patient was started on Plavix. Recent echo Review Of Systems: At the time of my evaluation: Constitutional: No fever, no chills. Reports weakness, fatigue or lethargy. EENT: No headache. No dizziness. Lungs: No shortness of breath, cough, no sputum production. No wheezing. Reports dyspnea on exertion Cardiovascular: No chest pain, no lower extremity edema. No palpitations. No paroxysmal nocturnal dyspnea. No orthopnea. No lightheadedness or dizziness. No syncopal episodes. Abdominal: No abdominal pain. No nausea, vomiting. No diarrhea. No constipation. No bloody or tarry stools. Genitourinary: No dysuria.. No urinary retention. Musculoskeletal: No myalgias. No muscle weakness, no frequent falls. No back pain. No neck pain. Integumentary: No wounds. No rash. No unusual bruising. Neurologic: No aphasia. No facial droop. No change in mentation. No head injury. No headache. Physical examination: Gen: This is a 78-year-old female. She is resting and appears to be in no acute distress VS: reviewed HEENT: Head is atraumatic, normocephalic. Pupils equal, round. Sclerae is anicteric. NECK: Supple. No JVD. LUNGS: Clear to auscultation. No wheezes or rhonchi. No intercostal retractions. HEART: Irregular rate and rhythm. ABDOMEN: Soft No tenderness. EXTREMITIES: No pedal edema. No calf tenderness. NEUROLOGICAL: Patient is awake, alert and oriented x3. Assessment: Paroxysmal atrial fibrillation with RVR History of coronary artery disease with previous stent of circumflex in 2009 and most recently stenting of the distal circumflex 09/15/2023 COPD History of bowel cancer and bladder cancer History of AAA Chronic hypoxic respiratory failure on home O2 as needed Plan: Discontinue Cardizem drip Continue Cardizem oral 240 mg daily Discontinue metolazone Start patient on amiodarone 400 mg oral twice daily Resume patient's home cardiac medications Obtain 2-D echocardiogram and Doppler study to assess cardiac structure and function Further recommendations to follow based upon clinical course Thank you kindly for this consultation. Nurse practitioner note has been reviewed, I agree with documented findings and plan of care. Patient was seen and examined. Past Medical History Past Medical History: Atrial Fibrillation, COPD Additional Past Medical History / Comment(s): emphysema, osteoporosis, bladder and colon cancer...no chemo History of Any Multi-Drug Resistant Organisms: None Reported Past Surgical History: Appendectomy, Bowel Resection, Cholecystectomy, Heart Catheterization With Stent Past Anesthesia/Blood Transfusion Reactions: No Reported Reaction Date of Last Stent Placement:: 09/15/2023 Past Psychological History: No Psychological Hx Reported Smoking Status: Former smoker Past Alcohol Use History: None Reported Past Drug Use History: None Reported Medications and Allergies Home Medications Medication Instructions Recorded Confirmed Type ALPRAZolam [Xanax] 0.125 mg PO BID PRN 09/15/23 10/23/23 History Albuterol Nebulized [Ventolin 2.5 mg INHALATION RT-Q6H PRN 09/15/23 10/23/23 History Nebulized] Albuterol Sulfate [Ventolin HFA] 1 - 2 puff INHALATION RT-Q6H PRN 09/15/23 10/23/23 History Alendronate Sodium [Fosamax] 70 mg PO Q7DAYS 09/15/23 10/23/23 History Aspirin EC [Ecotrin Low Dose] 81 mg PO DAILY 09/15/23 10/23/23 History Cholecalciferol [Vitamin D3 (25 50 mcg PO DAILY 09/15/23 10/23/23 History Mcg = 1000 Iu)] Empagliflozin [Jardiance] 10 mg PO DAILY 09/15/23 10/23/23 History Fluticasone Nasal Gordon [Flonase 1 spray EA NOSTRIL BID PRN 09/15/23 10/23/23 History Nasal Gordon] Isosorbide Mononitrate ER [Imdur] 30 mg PO DAILY 09/15/23 10/23/23 History L.acidoph,Paracasei, B.lactis 1 cap PO DAILY 09/15/23 10/23/23 History [Probiotic] Montelukast [Singulair] 10 mg PO HS 09/15/23 10/23/23 History Multivitamin/Iron/Folic Acid 1 tab PO DAILY 09/15/23 10/23/23 History [Centrum Complete Multivit Tab] Nitroglycerin Sl Tabs [Nitrostat] 0.4 mg SUBLINGUAL Q5M PRN 09/15/23 10/23/23 History Tiotropium Br/Olodaterol HCl 2 spray INHALATION RT-DAILY 09/15/23 10/23/23 History [Stiolto Respimat Inhal Gordon] buPROPion [Wellbutrin] 75 mg PO DAILY 09/15/23 10/23/23 History diphenhydrAMINE HCL [Benadryl] 25 mg PO BID PRN 09/15/23 10/23/23 History Apixaban [Eliquis] 2.5 mg PO BID #60 tab 09/16/23 10/23/23 Rx Clopidogrel [Plavix] 75 mg PO DAILY #30 tab 09/16/23 10/23/23 Rx Diltiazem Cd [Cardizem CD] 240 mg PO DAILY #30 cap 09/16/23 10/23/23 Rx Furosemide [Lasix] 40 mg PO DAILY #30 tab 09/16/23 10/23/23 Rx Potassium Chloride ER [K-Dur 10] 10 meq PO DAILY 10/23/23 10/23/23 History metOLazone [Zaroxolyn] 2.5 mg PO DIRECTED 10/23/23 10/23/23 History Allergies Allergy/AdvReac Type Severity Reaction Status Date / Time aclidinium Allergy Unknown Verified 10/23/23 21:29 [From Lev Lilly] lisinopril Allergy Unknown Verified 10/23/23 21:29 morphine Allergy Unknown Verified 10/23/23 21:29 Penicillins Allergy Unknown Verified 10/23/23 21:29 [id number] Reductase Allergy Unknown Verified 10/23/23 21:29 Inhibitor aspirin AdvReac Nausea & Verified 10/23/23 21:29 Vomiting Physical Exam Vitals: Vital Signs Temp Pulse Resp BP Pulse Ox 10/24/23 06:05 107 H 18 118/66 98 10/24/23 01:00 118 H 18 116/68 98 10/24/23 00:00 108 H 18 90/75 98 10/23/23 23:00 104 H 18 109/58 98 10/23/23 22:00 126 H 18 124/67 98 10/23/23 21:00 138 H 18 115/99 98 10/23/23 18:39 98.3 F 151 H 18 116/99 96 Intake and Output 10/23/23 10/24/23 10/24/23 22:59 06:59 14:59 Intake Total 118.033 Balance 118.033 Intake: Intake, IV Titration 118.033 Amount Diltiazem 125 mg In 118.033 Sodium Chloride 0.9% 100 ml @ 10 MG/HR 10 mls/hr IV .[id number] [facility] Rx#: [id number] Other: Weight 77.111 kg 77.111 kg Results 10/23/23 19:00 10/23/23 19:00 Cardiac Enzymes 10/23/23 10/23/23 10/23/23 Range/Units 19:00 19:00 22:28 AST 32 (14-36) U/L Troponin I 0.037 H* 0.028 (0.000-0.034) ng/mL 10/24/23 Range/Units 01:28 AST (14-36) U/L Troponin I 0.020 (0.000-0.034) ng/mL CBC 10/23/23 Range/Units 19:00 WBC 10.0 (3.8-10.6) k/uL RBC 4.92 (3.80-5.40) m/uL Hgb 16.0 (11.4-16.0) gm/dL Hct 48.5 H (34.0-46.0) % Plt Count 282 (150-450) k/uL Comprehensive Metabolic Panel 10/23/23 Range/Units 19:00 Sodium 138 (137-145) mmol/L Potassium 3.6 (3.5-5.1) mmol/L Chloride 100 (98-107) mmol/L Carbon Dioxide 30 (22-30) mmol/L BUN 30 H (7-17) mg/dL Creatinine 0.94 (0.52-1.04) mg/dL Glucose 96 (74-99) mg/dL Calcium 10.8 H (8.4-10.2) mg/dL AST 32 (14-36) U/L ALT 38 H (4-34) U/L Alkaline Phosphatase 107 (38-126) U/L Total Protein 6.6 (6.3-8.2) g/dL Albumin 3.9 (3.5-5.0) g/dL Current Medications Generic Name Dose Route Start Last Admin Trade Name Freq PRN Reason Stop Dose Admin Alprazolam 0.125 mg 10/24/23 00:05 Alprazolam 0.25 Mg Tab PO BID PRN Anxiety Apixaban 2.5 mg 10/24/23 09:00 Apixaban 2.5 Mg Tablet PO BID [facility] Protocol Aspirin 325 mg 10/24/23 09:00 Aspirin 325 Mg Tab PO DAILY [facility] Clopidogrel Bisulfate 75 mg 10/24/23 09:00 Clopidogrel 75 Mg Tab PO DAILY [facility] Diltiazem HCl 240 mg 10/24/23 09:00 Diltiazem Cd 240 Mg Cap.Er.24h PO DAILY CL Furosemide 40 mg 10/24/23 09:00 Furosemide 40 Mg Tab PO DAILY [facility] Diltiazem HCl 125 mg/ Sodium 125 mls @ 10 mls/hr 10/23/23 20:15 10/24/23 05:59 Chloride IV 10 mg/hr .[id number] CL 10 mls/hr Administration 10 MG/HR Isosorbide Mononitrate 30 mg 10/24/23 09:00 Isosorbide Mononitrate Er 30 Mg Tab.Er.24h PO DAILY [facility] Metolazone 2.5 mg 10/25/23 09:00 Metolazone 2.5 Mg Tab PO MoWeFr [facility] Montelukast Sodium 10 mg 10/24/23 21:00 Montelukast 10 Mg Tab PO HS [facility] Nitroglycerin 0.4 mg 10/23/23 20:45 Nitroglycerin Sl Tabs 0.4 Mg Tab SUBLINGUAL Q5M PRN Chest Pain Non-Formulary Medication 2 spray 10/24/23 08:00 Tiotropium Br/Olodaterol Hcl [Stiolto Respimat Inhal Gordon] INHALATION RT-DAILY [facility] Potassium Chloride 10 meq 10/24/23 09:00 Potassium Chloride Er 10 Meq Tab.Er.Prt PO DAILY [facility] Intake and Output 10/23/23 10/24/23 10/24/23 22:59 06:59 14:59 Intake Total 118.033 Balance 118.033 Intake: Intake, IV Titration 118.033 Amount Diltiazem 125 mg In 118.033 Sodium Chloride 0.9% 100 ml @ 10 MG/HR 10 mls/hr IV .[id number] [facility] Rx#: [id number] Other: Weight 77.111 kg 77.111 kg Patient Weight 10/25/23 06:59 Weight 77.111 kg 10/23/23 19:00 10/23/23 19:00
[2023-10-24] MEDS ORDERED: FLUTICASONE 50MCG/SPRAY NASAL 16GM EA NOSTRIL PRN (16:17)
--- NOTE | 2023-10-24 16:22 | P.PN ---
Subjective Progress Note Date: 10/24/23 (delayed charting seen at 0905) Patient is a 78-year-old female with atrial fibrillation and anticoagulated with Eliquis, COPD with chronic hypoxic respiratory failure on 2 L nasal cannula, coronary artery disease status post PCI to the distal circumflex on 09/15/23 and hypertension who presented to the emergency department with complaints of limitations. In the ER she was diagnosed with atrial fibrillation with rapid ventricular response. EKG demonstrated a heart rate of 143. Is remarkable for a troponin of 0.037. She was started on a heparin drip and arrangements were made for admission with consultation to cardiology. Patient seen and examined at bedside. She denies any palpitations currently. She denies any chest pain or shortness of breath. She has not gotten out of bed but is not having any current dizziness. She follows with Dr. Chacon. Vital signs reviewed General: nontoxic, no distress, appears at stated age Cardiovascular: S1S2 irreg, no murmur, positive posterior tibial pulse bilateral, Lungs: CTA bilateral, no rhonchi, no rales , no accessory muscle use Abdominal: soft, nontender to palpation, no guarding, no appreciable organomegaly Ext: no gross muscle atrophy, no edema b/l lower extremities, no contractures Neuro: CN II-XI grossly intact, no focal neuro deficits Psych: Alert, oriented, appropriate affect Assessment/Plan: Paroxysmal atrial fibrillation with rapid ventricular response Elevated troponin secondary to demand ischemia Coronary artery disease with recent PCI Hypertension -Aspirin 81 mg daily, Plavix 75 mg daily, Eliquis 2.5 mg twice daily -Imdur 30 mg daily, Lasix 40 mg daily. Hold Zaroxolyn. Farxiga 5 mg daily - off cardizem gtt/ Cardizem 240 mg daily, amio 400 mg BID - Await echo - Cardiology consultation reviewed: DC Cardizem drip, start oral Cardizem, discontinue metolazone, start patient on amiodarone. COPD without exacerbation Chronic hypoxic respiratory failure -Flonase 1 spray nostril twice daily -Symbicort 2 puffs twice daily -Albuterol/ipratropium inhalation every 6 hours as needed -Singulair 10 mg at night Imaging: None new Data Review: Labs reviewed this morning included troponin is 0.20 and cholesterol profile showing total cholesterol 206, triglyceride 288, LDL 94, HDL 54.2 DVT prophylaxis: eliquis Anticipated discharge date: pending clinical course Anticipated discharge place: pending clinical course This dictation was prepared using [employer] voice recognition software. Though every attempt is made to correct errors during dictation some may still exist. Objective - Vital Signs Vital signs: Vital Signs Temp 98.2 F 10/24/23 16:00 Pulse 90 10/24/23 16:00 Resp 20 10/24/23 16:00 BP 121/66 10/24/23 16:00 Pulse Ox 94 L 10/24/23 16:00 FiO2 Intake & Output 10/23/23 10/24/23 10/24/23 18:59 06:59 18:59 Intake Total 118.033 Balance 118.033 Weight 77.111 kg 77.111 kg Intake: Intake, IV Titration 118.033 Amount Diltiazem 125 mg In 118.033 Sodium Chloride 0.9% 100 ml @ 10 MG/HR 10 mls/hr IV .[id number] [facility] Rx#: [id number] Other: # Voids 2 - Labs CBC & Chem 7: 10/23/23 19:00 10/23/23 19:00 Labs: Abnormal Lab Results - Last 24 Hours (Table) 10/23/23 10/23/23 10/23/23 Range/Units 19:00 19:00 19:00 Hct 48.5 H (34.0-46.0) % BUN 30 H (7-17) mg/dL Calcium 10.8 H (8.4-10.2) mg/dL ALT 38 H (4-34) U/L Troponin I 0.037 H* (0.000-0.034) ng/mL Triglycerides (0.00-149.00) mg/dL Cholesterol (0.00-200.00) mg/dL VLDL Cholesterol, Calc (5.00-40.00) mg/dL 10/24/23 Range/Units 01:28 Hct (34.0-46.0) % BUN (7-17) mg/dL Calcium (8.4-10.2) mg/dL ALT (4-34) U/L Troponin I (0.000-0.034) ng/mL Triglycerides 288.00 H (0.00-149.00) mg/dL Cholesterol 206.00 H (0.00-200.00) mg/dL VLDL Cholesterol, Calc 57.60 H (5.00-40.00) mg/dL
[2023-10-24] MEDS: ALBUTEROL NEBULIZED 2.5 MG/3 ML INHALATION PRN (20:40)
[2023-10-24] MEDS: MONTELUKAST 10 MG TAB PO SCH (22:22)
[2023-10-25] MEDS: ALBUTEROL NEBULIZED 2.5 MG/3 ML INHALATION PRN ×2 (08:32→20:01)
[2023-10-25] MEDS ORDERED: metOLazone 2.5 MG TAB PO SCH (09:00)
[2023-10-25] MEDS ORDERED: ASPIRIN 81 MG PO SCH (09:00)
[2023-10-25] MEDS: AMIODARONE 200 MG TAB PO SCH ×2 (09:07→20:20)
[2023-10-25] MEDS: FUROSEMIDE 40 MG TAB PO SCH (09:07)
[2023-10-25] MEDS: CLOPIDOGREL 75 MG TAB PO SCH (09:07)
[2023-10-25] MEDS: POTASSIUM CHLORIDE ER 10 MEQ TAB.ER.PRT PO SCH (09:07)
[2023-10-25] MEDS: APIXABAN 5 MG TAB PO SCH ×2 (09:07→20:21)
[2023-10-25] MEDS: ISOSORBIDE MONONITRATE ER 30 MG TAB.ER.24H PO SCH (09:07)
[2023-10-25] MEDS: ASPIRIN 81 MG PO SCH (09:07)
[2023-10-25] MEDS: DILTIAZEM CD 240 MG CAP.ER.24H PO SCH (09:07)
[2023-10-25] MEDS: DAPAGLIFLOZIN PROPANEDIOL 5 MG TABLET PO SCH (09:08)
[2023-10-25] MEDS: NON FORMULARY DRUG (Tiotropium Br/Olodaterol Hcl [Stiolto Respimat Inhal Spray] 4 GM Each) INHALATION SCH (09:38)
--- NOTE | 2023-10-25 10:45 | CA ---
Transthoracic Echo Report Name: Ashlee Metz Age: 78 Gender: F : 1945 Exam Date: 10/24/2023 09:20 Exam Location: [facility] Ht (in): 61 Wt (lb): 170 Ordering Physician: Sandie Brito Attending/Referring Phys: [id number], Alisha [employer] Assurance Analyst Scott Hernandez Procedure CPT: Indications: LVF Cardiac Hx: Technical Quality: Technically difficult study Contrast 1: Total Dose (mL): Contrast 2: Total Dose (mL): MEASUREMENTS (Male / Female) Normal Values 2D ECHO LV Diastolic Diameter PLAX 4.4 cm 4.2 - 5.9 / 3.9 - 5.3 cm LV Systolic Diameter PLAX 2.9 cm IVS Diastolic Thickness 0.9 cm 0.6 - 1.0 / 0.6 - 0.9 cm LVPW Diastolic Thickness 1.0 cm 0.6 - 1.0 / 0.6 - 0.9 cm LV Relative Wall Thickness 0.4 RV Internal Dim ED PLAX 2.4 cm LVOT Diameter 1.7 cm Aortic Root Diameter 2.9 cm LA Systolic Diameter LX 2.5 cm 3.0 - 4.0 / 2.7 - 3.8 cm LV Diastolic Volume MOD BP 27.3 cm??? 67 - 155 / 56 - 104 cm??? LV Systolic Volume MOD BP 10.3 cm??? 22 - 58 / 19 - 49 cm??? LV Ejection Fraction MOD BP 62.2 % >= 55 % LV Cardiac Index MOD BP 1052.2 cm???/min???m??? LV Diastolic Volume MOD 4C 25.4 cm??? LV Systolic Volume MOD 4C 10.2 cm??? LV Ejection Fraction MOD 4C 60.0 % LV Cardiac Index MOD 4C 946.1 cm???/min???m??? LV Diastolic Length 4C 5.4 cm LV Systolic Length 4C 4.8 cm LV Diastolic Volume MOD 2C 28.5 cm??? LV Systolic Volume MOD 2C 10.5 cm??? LV Ejection Fraction MOD 2C 63.3 % LV Cardiac Index MOD 2C 1117.8 cm???/min???m??? LV Diastolic Length 2C 5.5 cm LV Systolic Length 2C 4.9 cm LA Volume 42.5 cm??? 18 - 58 / 22 - 52 cm??? LA Volume Index 22.9 cm???/m??? 16 - 28 cm???/m??? DOPPLER AV Peak Velocity 135.3 cm/s AV Peak Gradient 7.3 mmHg AI Peak Velocity 360.0 cm/s AI Peak Gradient 51.8 mmHg AI Pressure Half Time 503.2 ms LVOT Peak Velocity 108.3 cm/s LVOT Peak Gradient 4.7 mmHg LVOT Velocity Time Integral 19.0 cm LVOT Stroke Volume 43.3 cm??? LVOT Stroke Volume Index 24.6 ml/m??? LVOT Cardiac Index 2688.4 cm???/min???m??? AV Area Cont Eq pk 1.8 cm??? MV Peak Velocity 169.8 cm/s MV Peak Gradient 11.5 mmHg MV Mean Velocity 93.9 cm/s MV Mean Gradient 4.4 mmHg MV Velocity Time Integral 29.5 cm MR Peak Velocity 447.5 cm/s MR Peak Gradient 80.1 mmHg Mitral E Point Velocity 153.4 cm/s Mitral A Point Velocity 98.3 cm/s Mitral E to A Ratio 1.6 MV Deceleration Time 199.3 ms MV E' Velocity 6.7 cm/s Mitral E to MV E' Ratio 23.0 TR Peak Velocity 265.6 cm/s TR Peak Gradient 28.2 mmHg Right Ventricular Systolic Press 33.2 mmHg FINDINGS Left Ventricle Normal LV size and wal thickness. Left ventricular ejection fraction is estimated at 55-60 %. Right Ventricle Normal right ventricular size. RVSP= 33mmHg. Right Atrium Normal right atrial size. Left Atrium Normal left atrial size. Mitral Valve Moderate mitral valve calcification. Moderate MR. Peak gradient= 11.5mmHg. Mean gradient= 4.4mmhg. Aortic Valve Aortic valve not well visualized. At least Moderate AI. No aortic stenosis. Tricuspid Valve Tricuspid valve not well visualized. Mild TR. Pulmonic Valve Pulmonic valve not well visualized. No pulmonic regurgitation. Pericardium Moderate Apical/Anterior pericardial effusion. Aorta Normal size aortic root. CONCLUSIONS Moderate apical/anterior pericardial effusion Normal LV systolic function Mild aortic stenosis. Thickened mitral valve leaflets. Moderate aortic regurgitation Previewed by: Dr. Ruy Lopez MD (Electronically Signed) Final Date: 25 October 2023 10:44
[2023-10-25 10:59] LABS: HCT 44.5 % (34.0-46.0); HGB 14.6 gm/dL (11.4-16.0); MCH 33.1 pg (25.0-35.0); MCHC 32.9 g/dL (31.0-37.0); MCV 100.5 fL (80.0-100.0); Macrocytosis Slight; Mean Platelet Volume 8.4; Platelet Count 225 k/uL (150-450); RBC 4.43 m/uL (3.80-5.40); RDW 14.4 % (11.5-15.5); WBC 8.1 k/uL (3.8-10.6)
[2023-10-25 11:21] LABS: African American GFR (CKD) 71 (>60 ml/min/1.73 sqM); Anion Gap 8 mmol/L; Blood Urea Nitrogen 27 mg/dL (7-17); Carbon Dioxide 24 mmol/L (22-30); Chloride 107 mmol/L (98-107); Glucose 90 mg/dL (74-99); Non-African American GFR(CKD) 61 (>60 ml/min/1.73 sqM); Potassium 3.9 mmol/L (3.5-5.1); Sodium 139 mmol/L (137-145)
[2023-10-25] MEDS: METOPROLOL TARTRATE 25 MG TAB PO SCH ×2 (11:39→20:20)
--- NOTE | 2023-10-25 14:00 | P.PN ---
Subjective Progress Note Date: 10/25/23 History of present illness: This is a 78-year-old female patient of Dr. Irina Mac with past medical history of coronary artery disease with stent of the circumflex in 2009, paroxysmal atrial fibrillation, COPD, bowel cancer and bladder cancer, AAA, chronic hypoxic respiratory failure on home O2 at 2 L nasal cannula as needed, remote history of tobacco use and dependence. We have been asked to evaluate the patient for A. fib with RVR. Patient states that she came into the hospital because she was feeling some chest pressure and felt like she was going to pass out. She later felt she had some palpitations. She complains of feeling weakness. She denies shortness of breath. She does have oxygen that she uses at nighttime. She denies having any cough and no fever. No nausea. No stroke or seizure activity. She has history of smoking and quit in 2013. She has been prescribed metolazone but has not started taking this medication. At the time of this evaluation, patient states her pain is gone. Telemetry is atrial fibrillation. Patient is seen today in the emergency center waiting for a bed on the cardiac stepdown unit. Patient has been started on Cardizem drip. EKG atrial fibrillation with RVR 143 bpm Chest x-ray no acute cardiopulmonary disease process. COPD changes. CBC unremarkable. Electrolytes normal. BUN 30 creatinine 0.9. Calcium 10.8. Magnesium 2.0. Troponin 0.037, 0.028 and 0.02. ALT 38 otherwise liver function tests are normal. Triglycerides 288, cholesterol 206, LDL 94, HDL 54. Home cardiac medications: Eliquis 2.5 mg twice daily, Aspirin 81 mg daily, Plavix 75 mg daily, Cardizem 240 mg daily, Jardiance 10 mg daily, Lasix 40 mg daily, Imdur 30 mg daily, metolazone 2.5 mg on Monday (patient has not started taking this medication), Nitrostat as needed, potassium chloride 10 mEq daily Cardiac catheterization performed 09/15/[address] Chacon revealed 3050 percent RCA stenosis, 30-40% middle and distal LAD stenosis and 90% distal circumflex stenosis. Patient underwent PCI of the distal circumflex. Patient was started on Plavix. 10/25 Yesterday, IV Cardizem drip was discontinued and patient was started on oral amiodarone. This morning, patient went into A. fib with RVR and also complained of chest pain that was a burning type pain. She denies any palpitations. She states she had some dizziness. She states her breathing status is about the same. Heart rate was up to the 140s and 150s. She is maintained on the am iodarone which is new and as well as Cardizem CD 240 mg daily. Patient has been started on eliquis. Blood pressure is 119/58, pulse ox 96% on 2 L nasal cannula. Repeat blood work reveals potassium 3.9, BUN 27, creatinine 0.91. Magnesium 2.0. Troponin negative. Echocardiogram reveals moderate apical/anterior pericardial effusion. Normal LV systolic function. Mild aortic stenosis. Thickened mitral valve leaflets. Moderate aortic regurgitation. Physical examination: Gen: This is a 78-year-old female. She is resting and appears to be in no acute distress VS: reviewed HEENT: Head is atraumatic, normocephalic. Pupils equal, round. Sclerae is anicteric. NECK: Supple. No JVD. LUNGS: Clear to auscultation. No wheezes or rhonchi. No intercostal retractions. HEART: Irregular rate and rhythm. ABDOMEN: Soft No tenderness. EXTREMITIES: No pedal edema. No calf tenderness. NEUROLOGICAL: Patient is awake, alert and oriented x3. Assessment: Paroxysmal atrial fibrillation with RVR History of coronary artery disease with previous stent of circumflex in 2009 and most recently stenting of the distal circumflex 09/15/2023 COPD History of bowel cancer and bladder cancer History of AAA Chronic hypoxic respiratory failure on home O2 as needed Plan: Continue Cardizem oral 240 mg daily Continue patient on amiodarone 400 mg oral twice daily Continue patient's home cardiac medications Start patient on Lopressor 25 mg twice daily Further recommendations to follow based upon clinical course Nurse practitioner note has been reviewed, I agree with documented findings and plan of care. Patient was seen and examined. Objective - Vital Signs Vital signs: Vital Signs Temp 97.7 F 10/25/23 09:00 Pulse 142 H 10/25/23 09:05 Resp 24 10/25/23 09:05 BP 105/69 10/25/23 09:00 Pulse Ox 93 L 10/25/23 09:00 FiO2 Intake & Output 12/05/23 12/06/23 12/06/23 18:59 06:59 18:59 Intake Total 120 Balance 120 Weight 77.111 kg Intake: Oral 120 Other: Voiding Method Toilet Toilet # Voids 2 1 - Labs CBC & Chem 7: 10/25/23 10:35 10/25/23 10:35 Labs: Abnormal Lab Results - Last 24 Hours (Table) 10/25/23 Range/Units 10:35 MCV 100.5 H (80.0-100.0) fL
--- NOTE | 2023-10-25 17:33 | P.PN ---
Subjective Progress Note Date: 10/25/23 (delayed charting seen at approx [id number]) Patient is a 78-year-old female with atrial fibrillation and anticoagulated with Eliquis, COPD with chronic hypoxic respiratory failure on 2 L nasal cannula, coronary artery disease status post PCI to the distal circumflex on 09/15/23 and hypertension who presented to the emergency department with complaints of limitations. In the ER she was diagnosed with atrial fibrillation with rapid ventricular response. EKG demonstrated a heart rate of 143. Is remarkable for a troponin of 0.037. She was started on a cardizem drip and arrangements were made for admission with consultation to cardiology. He was transitioned from IV Cardizem to oral Cardizem. Amiodarone was added. She continued to have issues with atrial fibrillation with rapid ventricular response. Echocardiogram was performed which showed a preserved ejection fraction without significant valvular disease. Patient seen and examined at bedside with family present. She does complain of some chest pain. She was given nitro and has had some relief. She continues to have some burning pain. She also describes palpitations, shortness of breath, lightheaded and dizziness. She denies any headache. ECG at bedside reviewed with no signs of acute ischemia. Telemetry reviewed and patient continues to have A. fib with rapid ventricular response up into the 140s. Vital signs reviewed General: nontoxic, no distress, appears at stated age Cardiovascular: S1S2 irreg, no murmur, positive posterior tibial pulse bilateral, Lungs: CTA bilateral, no rhonchi, no rales , no accessory muscle use Abdominal: soft, nontender to palpation, no guarding, no appreciable organomegaly Ext: no gross muscle atrophy, no edema b/l lower extremities, no contractures Neuro: CN II-XI grossly intact, no focal neuro deficits Psych: Alert, oriented, appropriate affect Assessment/Plan: Paroxysmal atrial fibrillation with rapid ventricular response Elevated troponin secondary to demand ischemia Coronary artery disease with recent PCI Hypertension Chest Pain - Stat troponin ordered. Case discussed with [facility] cardiology nurse practitioner who states they will be around to see the patient shortly. I discussed with her that my next medications at this patient would be a beta betsy however will defer to them due to her [place] requiring high dose Cardizem and amiodarone. After being seen by cardiology she was started on Toprol 25 mg by mouth twice daily. - Aspirin 81 mg daily, Plavix 75 mg daily, Eliquis 2.5 mg twice daily - Imdur 30 mg daily, Lasix 40 mg daily. Hold Zaroxolyn. Farxiga 5 mg daily - off cardizem gtt/ Cardizem 240 mg daily, amio 400 mg BID COPD without exacerbation Chronic hypoxic respiratory failure -Flonase 1 spray nostril twice daily -Symbicort 2 puffs twice daily -Albuterol/ipratropium inhalation every 6 hours as needed -Singulair 10 mg at night Imaging: Echocardiogram reviewed: Ejection fraction 55-60%, moderate aortic regurgitation, moderate pericardial effusion Data Review: Labs reviewed today include CBC and basic metabolic profile which are unremarkable. DVT prophylaxis: eliquis Anticipated discharge date: pending clinical course Anticipated discharge place: pending clinical course This dictation was prepared using [employer] voice recognition software. Though every attempt is made to correct errors during dictation some may still exist. Objective - Vital Signs Vital signs: Vital Signs Temp 97.4 F L 10/25/23 11:35 Pulse 60 10/25/23 15:30 Resp 16 10/25/23 15:30 BP 117/56 10/25/23 15:30 Pulse Ox 95 10/25/23 15:30 FiO2 Intake & Output 10/24/23 10/25/23 10/25/23 18:59 06:59 18:59 Intake Total 250 Balance 250 Weight 77.111 kg Intake: IV 10 Invasive Line 3 10 Oral 240 Other: Voiding Method Toilet Toilet # Voids 2 1 1 - Labs CBC & Chem 7: 10/25/23 10:35 10/25/23 10:35 Labs: Abnormal Lab Results - Last 24 Hours (Table) 10/25/23 10/25/23 Range/Units 10:35 10:35 MCV 100.5 H (80.0-100.0) fL BUN 27 H (7-17) mg/dL
[2023-10-25] MEDS: MONTELUKAST 10 MG TAB PO SCH (20:21)
[2023-10-26] MEDS: NON FORMULARY DRUG (Tiotropium Br/Olodaterol Hcl [Stiolto Respimat Inhal Spray] 4 GM Each) INHALATION SCH (08:15)
[2023-10-26] MEDS: APIXABAN 5 MG TAB PO SCH (08:24)
[2023-10-26] MEDS: ISOSORBIDE MONONITRATE ER 30 MG TAB.ER.24H PO SCH (08:24)
[2023-10-26] MEDS: FUROSEMIDE 40 MG TAB PO SCH (08:24)
[2023-10-26] MEDS: CLOPIDOGREL 75 MG TAB PO SCH (08:24)
[2023-10-26] MEDS: AMIODARONE 200 MG TAB PO SCH (08:24)
[2023-10-26] MEDS: POTASSIUM CHLORIDE ER 10 MEQ TAB.ER.PRT PO SCH (08:24)
[2023-10-26] MEDS: ASPIRIN 81 MG PO SCH (08:24)
[2023-10-26] MEDS: DILTIAZEM CD 240 MG CAP.ER.24H PO SCH (08:24)
[2023-10-26] MEDS: DAPAGLIFLOZIN PROPANEDIOL 5 MG TABLET PO SCH (08:25)
[2023-10-26 09:49] VITALS: RESP 20
[2023-10-26 10:14] LABS: HCT 46.4 % (34.0-46.0); HGB 15.1 gm/dL (11.4-16.0); MCH 33.2 pg (25.0-35.0); MCHC 32.7 g/dL (31.0-37.0); MCV 101.6 fL (80.0-100.0); Macrocytosis Slight; Mean Platelet Volume 8.5; Platelet Count 212 k/uL (150-450); RBC 4.56 m/uL (3.80-5.40); RDW 14.8 % (11.5-15.5); WBC 9.1 k/uL (3.8-10.6)
[2023-10-26 10:30] LABS: African American GFR (CKD) 64 (>60 ml/min/1.73 sqM); Anion Gap 11 mmol/L; Blood Urea Nitrogen 30 mg/dL (7-17); Calcium 9.2 mg/dL (8.4-10.2); Carbon Dioxide 26 mmol/L (22-30); Chloride 103 mmol/L (98-107); Glucose 88 mg/dL (74-99); Non-African American GFR(CKD) 55 (>60 ml/min/1.73 sqM); Sodium 140 mmol/L (137-145)
--- NOTE | 2023-10-26 11:08 | P.DS ---
Providers Date of admission: 10/23/23 20:45 Expected date of discharge: 10/26/23 Attending physician: Ramona Mayers MD Consults: 10/23/23 20:45 Consult Physician Urgent Consulting Provider: [facility] Consult Reason/Comments: A. fib with rapid ventricular response Do you want consulting provider notified?: Yes Primary care physician: Geovani Rolle MD Hospital Course: Paroxysmal atrial fibrillation with rapid ventricular response Elevated troponin secondary to demand ischemia Coronary artery disease with recent PCI Hypertension Chest Pain COPD without exacerbation Chronic hypoxic respiratory failure Patient is a 78-year-old female with atrial fibrillation and anticoagulated with Eliquis, COPD with chronic hypoxic respiratory failure on 2 L nasal cannula, co ronary artery disease status post PCI to the distal circumflex on 09/15/23 and hypertension who presented to the emergency department with complaints of limitations. In the ER she was diagnosed with atrial fibrillation with rapid ventricular response. EKG demonstrated a heart rate of 143. Is remarkable for a troponin of 0.037. She was started on a cardizem drip and arrangements were made for admission with consultation to cardiology. He was transitioned from IV Cardizem to oral Cardizem. Amiodarone was added. She continued to have issues with atrial fibrillation with rapid ventricular response. Echocardiogram was performed which showed a preserved ejection fraction without significant valvular disease. Pt converted to NSR with regimen on amiodarone, metoprolol, and cardizem, and was discharged on the same regimen. Pt will take Amiodarone 400mg BID for total of 7 days, then switch to 200mg BID until seen by cardiology. She will also f/u with PCP. I spent 34 minutes coordinating this discharge on 10/26 Vital signs reviewed General: nontoxic, no distress, appears at stated age Cardiovascular: S1S2 irreg, no murmur, positive posterior tibial pulse bilateral, Lungs: CTA bilateral, no rhonchi, no rales , no accessory muscle use Abdominal: soft, nontender to palpation, no guarding, no appreciable organomegaly Ext: no gross muscle atrophy, no edema b/l lower extremities, no contractures Neuro: CN II-XI grossly intact, no focal neuro deficits Psych: Alert, oriented, appropriate affect Patient Condition at Discharge: Good Plan - Discharge Summary Discharge Rx Participant: Yes New Discharge Prescriptions: New Metoprolol Tartrate [Lopressor] 25 mg PO BID #60 tab Amiodarone [Cordarone] See Rx Instructions .ROUTE .COMPLEX #72 tab Continue Nitroglycerin Sl Tabs [Nitrostat] 0.4 mg SUBLINGUAL Q5M PRN PRN Reason: Chest Pain Isosorbide Mononitrate ER [Imdur] 30 mg PO DAILY buPROPion [Wellbutrin] 75 mg PO DAILY Cholecalciferol [Vitamin D3 (25 Mcg = 1000 Iu)] 50 mcg PO DAILY ALPRAZolam [Xanax] 0.125 mg PO BID PRN PRN Reason: Anxiety Diltiazem Cd [Cardizem CD] 240 mg PO DAILY #30 cap Apixaban [Eliquis] 2.5 mg PO BID #60 tab Potassium Chloride ER [K-Dur 10] 10 meq PO DAILY Multivitamin/Iron/Folic Acid [Centrum Complete Multivit Tab] 1 tab PO DAILY Montelukast [Singulair] 10 mg PO HS L.acidoph,Paracasei, B.lactis [Probiotic] 1 cap PO DAILY diphenhydrAMINE HCL [Benadryl] 25 mg PO BID PRN PRN Reason: Allergy Symptoms Fluticasone Nasal Cornish [Flonase Nasal Cornish] 1 spray EA NOSTRIL BID PRN PRN Reason: Allergy Symptoms Aspirin EC [Ecotrin Low Dose] 81 mg PO DAILY Empagliflozin [Jardiance] 10 mg PO DAILY Alendronate Sodium [Fosamax] 70 mg PO Q7DAYS Albuterol Sulfate [Ventolin HFA] 1 - 2 puff INHALATION RT-Q6H PRN PRN Reason: Shortness Of Breath Albuterol Nebulized [Ventolin Nebulized] 2.5 mg INHALATION RT-Q6H PRN PRN Reason: Shortness Of Breath Tiotropium Br/Olodaterol HCl [Stiolto Respimat Inhal Cornish] 2 spray INHALATION RT-DAILY Furosemide [Lasix] 40 mg PO DAILY #30 tab Clopidogrel [Plavix] 75 mg PO DAILY #30 tab Discontinued metOLazone [Zaroxolyn] 2.5 mg PO DIRECTED Discharge Medication List ALPRAZolam [Xanax] 0.125 mg PO BID PRN 09/15/23 [History] Albuterol Nebulized [Ventolin Nebulized] 2.5 mg INHALATION RT-Q6H PRN 09/15/23 [History] Albuterol Sulfate [Ventolin HFA] 1 - 2 puff INHALATION RT-Q6H PRN 09/15/23 [History] Alendronate Sodium [Fosamax] 70 mg PO Q7DAYS 09/15/23 [History] Aspirin EC [Ecotrin Low Dose] 81 mg PO DAILY 09/15/23 [History] Cholecalciferol [Vitamin D3 (25 Mcg = 1000 Iu)] 50 mcg PO DAILY 09/15/23 [History] Empagliflozin [Jardiance] 10 mg PO DAILY 09/15/23 [History] Fluticasone Nasal Cornish [Flonase Nasal Cornish] 1 spray EA NOSTRIL BID PRN 09/15/23 [History] Isosorbide Mononitrate ER [Imdur] 30 mg PO DAILY 09/15/23 [History] L.acidoph,Paracasei, B.lactis [Probiotic] 1 cap PO DAILY 09/15/23 [History] Montelukast [Singulair] 10 mg PO HS 09/15/23 [History] Multivitamin/Iron/Folic Acid [Centrum Complete Multivit Tab] 1 tab PO DAILY 09/15/23 [History] Nitroglycerin Sl Tabs [Nitrostat] 0.4 mg SUBLINGUAL Q5M PRN 09/15/23 [History] Tiotropium Br/Olodaterol HCl [Stiolto Respimat Inhal Cornish] 2 spray INHALATION RT-DAILY 09/15/23 [History] buPROPion [Wellbutrin] 75 mg PO DAILY 09/15/23 [History] diphenhydrAMINE HCL [Benadryl] 25 mg PO BID PRN 09/15/23 [History] Apixaban [Eliquis] 2.5 mg PO BID #60 tab 09/16/23 [Rx] Clopidogrel [Plavix] 75 mg PO DAILY #30 tab 09/16/23 [Rx] Diltiazem Cd [Cardizem CD] 240 mg PO DAILY #30 cap 09/16/23 [Rx] Furosemide [Lasix] 40 mg PO DAILY #30 tab 09/16/23 [Rx] Potassium Chloride ER [K-Dur 10] 10 meq PO DAILY 10/23/23 [History] Amiodarone [Cordarone] See Rx Instructions .ROUTE .COMPLEX #72 tab 10/26/23 [Rx] Metoprolol Tartrate [Lopressor] 25 mg PO BID #60 tab 12/07/23 [Rx] Follow up Appointment(s)/Referral(s): [facility] [NON-STAFF] - Geovani Rolle MD [Primary Care Provider] - 11/02/23 10:30 am (with DAMASO SIGALA) Patient Instructions/Handouts: A-fib (Atrial Fibrillation) (DC) Discharge Disposition: HOME SELF-CARE
[2023-10-26 12:14] VITALS: BP 119/56; PULSE 57; TEMP 97.3
[2023-10-26] MEDS: METOPROLOL TARTRATE 25 MG TAB PO SCH (12:37)
--- NOTE | 2023-10-26 14:03 | P.PN ---
Subjective Progress Note Date: 10/26/23 History of present illness: This is a 78-year-old female patient of Dr. Irina Mac with past medical history of coronary artery disease with stent of the circumflex in 2009, paroxysmal atrial fibrillation, COPD, bowel cancer and bladder cancer, AAA, chronic hypoxic respiratory failure on home O2 at 2 L nasal cannula as needed, remote history of tobacco use and dependence. We have been asked to evaluate the patient for A. fib with RVR. Patient states that she came into the hospital because she was feeling some chest pressure and felt like she was going to pass out. She later felt she had some palpitations. She complains of feeling weakness. She denies shortness of breath. She does have oxygen that she uses at nighttime. She denies having any cough and no fever. No nausea. No stroke or seizure activity. She has history of smoking and quit in 2013. She has been prescribed metolazone but has not started taking this medication. At the time of this evaluation, patient states her pain is gone. Telemetry is atrial fibrillation. Patient is seen today in the emergency center waiting for a bed on the cardiac stepdown unit. Patient has been started on Cardizem drip. EKG atrial fibrillation with RVR 143 bpm Chest x-ray no acute cardiopulmonary disease process. COPD changes. CBC unremarkable. Electrolytes normal. BUN 30 creatinine 0.9. Calcium 10.8. Magnesium 2.0. Troponin 0.037, 0.028 and 0.02. ALT 38 otherwise liver function tests are normal. Triglycerides 288, cholesterol 206, LDL 94, HDL 54. Home cardiac medications: Eliquis 2.5 mg twice daily, Aspirin 81 mg daily, Plavix 75 mg daily, Cardizem 240 mg daily, Jardiance 10 mg daily, Lasix 40 mg daily, Imdur 30 mg daily, metolazone 2.5 mg on Monday (patient has not started taking this medication), Nitrostat as needed, potassium chloride 10 mEq daily Cardiac catheterization performed 09/15/[address] Chacon revealed 3050 percent RCA stenosis, 30-40% middle and distal LAD stenosis and 90% distal circumflex stenosis. Patient underwent PCI of the distal circumflex. Patient was started on Plavix. 10/25 Yesterday, IV Cardizem drip was discontinued and patient was started on oral amiodarone. This morning, patient went into A. fib with RVR and also complained of chest pain that was a burning type pain. She denies any palpitations. She states she had some dizziness. She states her breathing status is about the same. Heart rate was up to the 140s and 150s. She is maintained on the am iodarone which is new and as well as Cardizem CD 240 mg daily. Patient has been started on eliquis. Blood pressure is 119/58, pulse ox 96% on 2 L nasal cannula. Repeat blood work reveals potassium 3.9, BUN 27, creatinine 0.91. Magnesium 2.0. Troponin negative. Echocardiogram reveals moderate apical/anterior pericardial effusion. Normal LV systolic function. Mild aortic stenosis. Thickened mitral valve leaflets. Moderate aortic regurgitation. 10/26 Patient is seen in follow-up today. She remains in a sinus rhythm. Blood pressure is 119/56, heart rate in the 50s, pulse ox 95% on 2 L, afebrile. Repeat blood work reveals hemoglobin 15, BUN 30 creatinine 1. Physical examination: Gen: This is a 78-year-old female. She is resting and appears to be in no acute distress VS: reviewed HEENT: Head is atraumatic, normocephalic. Pupils equal, round. Sclerae is anicteric. NECK: Supple. No JVD. LUNGS: Clear to auscultation. No wheezes or rhonchi. No intercostal retractions. HEART: Irregular rate and rhythm. ABDOMEN: Soft No tenderness. EXTREMITIES: No pedal edema. No calf tenderness. NEUROLOGICAL: Patient is awake, alert and oriented x3. Assessment: Paroxysmal atrial fibrillation with RVR History of coronary artery disease with previous stent of circumflex in 2009 and most recently stenting of the distal circumflex 09/15/2023 COPD History of bowel cancer and bladder cancer History of AAA Chronic hypoxic respiratory failure on home O2 as needed Plan: Continue Cardizem oral 240 mg daily Continue patient on amiodarone 400 mg oral twice daily and taper to 200 mg twice daily Continue patient's home cardiac medications Continue on Lopressor 25 mg twice daily Patient to be discharged on Plavix and eliquis, no aspirin. Patient is cleared for discharge from cardiology and will follow-up with Dr. Irina Mac in 1-2 weeks. Nurse practitioner note has been reviewed, I agree with documented findings and plan of care. Patient was seen and examined. Objective - Vital Signs Vital signs: Vital Signs Temp 97.3 F L 10/26/23 11:54 Pulse 57 L 10/26/23 11:54 Resp 20 10/26/23 11:54 BP 119/56 10/26/23 11:54 Pulse Ox 95 10/26/23 11:54 FiO2 Intake & Output 10/25/23 10/26/23 10/26/23 18:59 06:59 18:59 Intake Total 472 118 Balance 472 118 Intake: IV 10 Invasive Line 3 10 Oral 462 118 Other: Voiding Method Toilet Toilet # Voids 1 1 - Labs CBC & Chem 7: 10/26/23 09:36 10/26/23 09:36 Labs: Abnormal Lab Results - Last 24 Hours (Table) 10/26/23 10/26/23 Range/Units 09:36 09:36 Hct 46.4 H (34.0-46.0) % MCV 101.6 H (80.0-100.0) fL BUN 30 H (7-17) mg/dL
== END 2023-10-26 13:15 | disposition home or self-care (01) | DRG 309 ==
LOC: EC 18:36 → 3SCARD 20:45
PROVIDERS: ADMIT Internal Medicine; ATTEND Internal Medicine
DX: I48.0 Paroxysmal atrial fibrillation (principal); I24.89 Other forms of acute ischemic heart disease; I31.39 Other pericardial effusion (noninflammatory); J96.11 Chronic respiratory failure with hypoxia; I35.1 Nonrheumatic aortic (valve) insufficiency; I10 Essential (primary) hypertension; I25.10 Atherosclerotic heart disease of native coronary artery without angina pectoris; I71.40 Abdominal aortic aneurysm, without rupture, unspecified; J43.9 Emphysema, unspecified; M81.0 Age-related osteoporosis without current pathological fracture; Z87.891 Personal history of nicotine dependence; Z88.0 Allergy status to penicillin; Z88.8 Allergy status to other drugs, medicaments and biological substances; Z88.5 Allergy status to narcotic agent; Z95.5 Presence of coronary angioplasty implant and graft; Z99.81 Dependence on supplemental oxygen; Z85.51 Personal history of malignant neoplasm of bladder; Z85.038 Personal history of other malignant neoplasm of large intestine; Z79.899 Other long term (current) drug therapy; Z79.84 Long term (current) use of oral hypoglycemic drugs; Z79.83 Long term (current) use of bisphosphonates; Z79.82 Long term (current) use of aspirin; Z79.02 Long term (current) use of antithrombotics/antiplatelets; Z79.01 Long term (current) use of anticoagulants
CPT/HCPCS: 36415; 71046; 80048; 80053; 80061; 83735; 84484; 85025; 85027; 93005; 93306; 94640; 94760; 96361; 96365; 96366; 99291